=== PATIENT | female | born 1990 | race Caucasian/White ===

== ENCOUNTER → 2020-02-15 12:45 | Outpatient (CLI) | payer MEDICAID, SELFPAY ==
--- NOTE | 2020-02-15 12:46 | US_ITS ---
PROCEDURE: US OB /MATERNAL DETAIL CLINICAL INDICATION: US OB Complete Anatomy scan COMPARISON: No exams were available for comparison FINDINGS: There is a single live fetus which is in breech presentation. heart and body motion is noted. The cervix is closed and measures 5 cm transabdominal. The placenta is anterior in implantation and is grade 1. The placenta is low lying near the cervical os. Complete survey performed and was unremarkable on the submitted images as in PACS. No discrete anomalies identified on survey imaging by technologist. Active fetus. Three-vessel cord with satisfactory umbilical cord insertion. 4- chamber heart noted. Survey of brain & ventricles Unremarkable. Face and neck survey unremarkable. Diaphragm and chest views unremarkable. Abdomen: Both kidneys noted and unremarkable. Stomach noted and satisfactory. Spine: Survey of the spine satisfactory with no anomalies identified nor imaged. Both arms and legs noted. Amniotic Fluid: Adequate. Maternal adnexa: No significant findings. Measurements: Average ultrasound age 20weeks 5days. Gestational Age 20weeks 3days Estimated due date by ultrasound age 0206/29/2020. Estimated weight 365g BPD = 20weeks 5days OFD = 21weeks 3days HC = 20weeks 3days AC = 20weeks 6days FL = 20weeks 3days Growth Percentile= 2% Heart Rate = 150bpm Cerebellum = 21weeks 4days Humerus = 21weeks HC/AC is 1.14 CI is 0.75 FL/BPD is 0.69 FL/AC is 0.21 IMPRESSION: There is a live IUP in breech presentation with an average ultrasound age of 20 weeks and 5 days. All parameters correlate with no obvious anomalies. The LMP percentile growth is 2 percent however. This could be related to miss calculated dates. Please correlate with patient's menstrual history. One cannot exclude the possibility of intrauterine growth restriction based on the numbers. There is an anterior grade 1 placenta which is low lying. Dictated by: John Tavares MD 02/16/2020 09:18 John Tavares MD in [place] 02/16/2020 09:18
== END ==
PROVIDERS: PCP Family Medicine; Visit Provider Obstetrics & Gynecology
DX: Z36.0 Encounter for antenatal screening for chromosomal anomalies (principal)
CPT/HCPCS: 76811

== ENCOUNTER → 2020-02-29 15:16 | Outpatient (CLI) | payer MEDICAID, SELFPAY ==
[2020-02-29 16:34] LABS: Basophils % 0.2 % (0.1-2.0); Eosinophils # 0.1 K/mm3 (0.0-0.4); Eosinophils % 1.2 % (0.1-12.0); Hematocrit 44.2 % (37.0-47.0); Hemoglobin 14.1 g/dL (12.2-16.2); Lymphocytes # 2.2 K/mm3 (0.7-4.5); Lymphocytes % 21.1 % (10-50); Mean Corpuscular Volume 90.7 fl (81-99); Mean Platelet Volume 8.6 fl (7.4-10.4); Monocytes # 0.4 K/mm3 (0.1-1.0); Monocytes % 3.5 % (1.7-9.3); Neutrophils # 7.6 K/mm3 (1.8-7.8); Platelet Count 261 K/mm3 (142-424); Red Blood Count 4.88 M/mm3 (4.20-5.40); Red Cell Distribution Width 14.7 % (11.5-17.5); White Blood Count 10.3 K/mm3 (4.8-10.8)
[2020-03-02 09:22] LABS: HIV Screen 4th Generation wRfx Non Reactive (Non Reactive)
[2020-03-02 10:41] LABS: Hepatitis B Surface Antigen Negative (Negative); Hepatitis C Antibody <0.1 s/co ratio (0.0-0.9)
[2020-03-02 14:47] LABS: Rapid Plasma Reagin Ab Titer Non Reactive (NonRea<1:1)
== END ==
PROVIDERS: Visit Provider Obstetrics & Gynecology
DX: Z34.90 Encounter for supervision of normal pregnancy, unspecified, unspecified trimester (principal)
CPT/HCPCS: 36415; 85025; 86592; 86703; 86762; 86850; 87340; 87380; G0432

== ENCOUNTER → 2020-04-04 15:54 | Outpatient (CLI) | payer MEDICAID, SELFPAY | PROVIDERS: Visit Provider Obstetrics & Gynecology | DX: Z34.90 Encounter for supervision of normal pregnancy, unspecified, unspecified trimester (principal) | CPT/HCPCS: 87086; 87088; 87186 ==

== ENCOUNTER 2020-04-04 22:05 | Observation (INO) | payer MEDICAID, SELFPAY ==
[2020-04-04 18:45] VITALS: BP 116/69; PULSE 68; RESP 22; TEMP 37.1; O2SAT 96; BMI 26.3
[2020-04-04 18:55] LABS: Microscopic, Urine URINE MICROSCOPIC (MICROSCOPIC)
[2020-04-04 19:08] LABS: Appearance,Urine CLOUDY (Clear); Bilirubin,Urine Negative (Negative); Blood, Urine Negative (Negative); Color,Urine YELLOW (Yellow); Glucose,Urine (UA) Negative (Negative); Ketones,Urine 1+ (Negative); Leukocyte Esterase,Urine 1+ (Negative); Nitrate,Urine Negative (Negative); Protein,Urine Negative (Negative); Urobilinogen,Urine 0.2 EU/dl (0.2)
[2020-04-04 19:24] LABS: Amphetamine/Metha Screen,Urine Negative ng/ml (<1000)
[2020-04-04 19:25] LABS: Barbiturates Screen,Urine Negative ng/ml (<200); Benzodiazepines Screen,Urine Negative ng/ml (<200)
[2020-04-04 19:26] LABS: Cannabinoid Screen,Urine Negative ng/ml (<50); Cocaine Screen,Urine Negative ng/ml (<300)
[2020-04-04 19:27] LABS: Methadone Screen,Urine Negative ng/ml (<300)
[2020-04-04 19:28] LABS: Opiate Screen,Urine Negative ng/ml (<300); Phencyclidine Screen,Urine Negative ng/ml (<25)
[2020-04-04 19:42] LABS: Bacteria,Urine 4+ /lpf
[2020-04-04 22:20] LABS: Basophils % 0.4 % (0.1-2.0); Eosinophils # 0.1 K/mm3 (0.0-0.4); Hemoglobin 10.5 g/dL (12.2-16.2); Lymphocytes # 2.7 K/mm3 (0.7-4.5); Lymphocytes % 27.8 % (10-50); Mean Corpuscular HGB Conc 31.8 g/dL (31.8-35.4); Mean Corpuscular Hemoglobin 28.7 pg (27.0-31.2); Mean Corpuscular Volume 90.2 fl (81-99); Mean Platelet Volume 8.5 fl (7.4-10.4); Monocytes # 0.3 K/mm3 (0.1-1.0); Monocytes % 3.1 % (1.7-9.3); Neutrophils # 6.6 K/mm3 (1.8-7.8); Neutrophils % 67.7 % (37.0-80.0); Platelet Count 240 K/mm3 (142-424); Red Blood Count 3.66 M/mm3 (4.20-5.40); Red Cell Distribution Width 13.8 % (11.5-17.5); White Blood Count 9.8 K/mm3 (4.8-10.8)
[2020-04-04 22:22] LABS: Chloride 107 mmol/L (98-107); Sodium 135 mmol/L (136-145)
[2020-04-04 22:23] LABS: Potassium 3.4 mmoL/L (3.5-5.1)
[2020-04-04 22:25] LABS: Blood Urea Nitrogen 4 mg/dl (7-17); Creatinine Clearance Estimated 200 mL/min (50-200); Estimated Glomerular Filt Rate 146 ml/min (>60); GFR (African American) 177 ML/MIN (>60)
[2020-04-04 22:26] LABS: Anion Gap 8.4 mEq/L (5-15); Calcium 8.7 mg/dl (8.4-10.2); Carbon Dioxide 23 mmol/L (22.0-30.0); Glucose 91 mg/dl (74-100)
[2020-04-04 23:01] LABS: Coronavirus 19 IgG Antibody Negative (Negative); Coronavirus 19 IgM Antibody Negative (Negative)
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
[2020-04-05 06:49] LABS: Basophils % 0.5 % (0.1-2.0); Eosinophils # 0.1 K/mm3 (0.0-0.4); Eosinophils % 1.6 % (0.1-12.0); Hematocrit 31.4 % (37.0-47.0); Hemoglobin 9.8 g/dL (12.2-16.2); Lymphocytes # 3.2 K/mm3 (0.7-4.5); Lymphocytes % 44.5 % (10-50); Mean Corpuscular HGB Conc 31.1 g/dL (31.8-35.4); Mean Corpuscular Hemoglobin 28.5 pg (27.0-31.2); Mean Corpuscular Volume 91.6 fl (81-99); Mean Platelet Volume 8.2 fl (7.4-10.4); Monocytes # 0.3 K/mm3 (0.1-1.0); Monocytes % 3.9 % (1.7-9.3); Neutrophils # 3.6 K/mm3 (1.8-7.8); Neutrophils % 49.4 % (37.0-80.0); Platelet Count 217 K/mm3 (142-424); Red Blood Count 3.43 M/mm3 (4.20-5.40); Red Cell Distribution Width 13.7 % (11.5-17.5); White Blood Count 7.3 K/mm3 (4.8-10.8)
[2020-04-05 06:55] LABS: Chloride 107 mmol/L (98-107); Potassium 4.2 mmoL/L (3.5-5.1); Sodium 137 mmol/L (136-145)
[2020-04-05 06:58] LABS: Anion Gap 7.2 mEq/L (5-15); Blood Urea Nitrogen 5 mg/dl (7-17); Calcium 8.7 mg/dl (8.4-10.2); Carbon Dioxide 27 mmol/L (22.0-30.0); Creatinine Clearance Estimated 166 mL/min (50-200); Estimated Glomerular Filt Rate 118 ml/min (>60); GFR (African American) 143 ML/MIN (>60); Glucose 74 mg/dl (74-100)
--- NOTE | 2020-04-05 07:33 | HMH.PHAVTE ---
[facility] Pharmacy VTE Monitoring - Patient Demographics Admission date: 04/04/20 Report Date: 04/05/20 Time: 07:33 Allergies/Adverse Reactions: Patient Allergies No Known Allergies Allergy (Verified 04/04/20 14:18) Height: 1.7 m Weight: 76.204 kg - VTE Risk Labs: VTE Related Lab Results Hgb 9.8 g/dL (12.2-16.2) L 04/05/20 06:10 Hct 31.4 % (37.0-47.0) L 04/05/20 06:10 Plt Count 217 K/mm3 (142-424) 04/05/20 06:10 BUN 5 mg/dl (7-17) L 04/05/20 06:10 Creatinine 0.60 mg/dl (0.52-1.04) 04/05/20 06:10 Estimated Creat Clear 166 mL/min (50-200) 04/05/20 06:10 - Prophylaxis VTE Prophylaxis Ordered?: Yes Types of VTE Prophylaxis: TEDS Knee High Location of Applied Device: Bilateral Lower Extremeties
--- NOTE | 2020-04-05 07:33 | HMH.PHAINT ---
MEDICATION RECONCILIATION COMPLETED ON PATIENT USING EXTERNAL FILL HISTORY FROM PHARMACY. -RADHA BRITT, DEIDRAD
--- NOTE | 2020-04-05 09:00 | US_ITS ---
PROCEDURE: US KIDNEY CLINICAL INDICATION: left flank pain COMPARISON: US US OB /MATERNAL DETAIL from 02/15/2020 FINDINGS: The right kidney is 12 x 6 x 6 cm. Left kidney is 12 x 6 x 6 cm. There is very minimal ectasia of the renal pelves on both sides which could be related to patient's hydration status and could also be seen with . No renal mass or other significant anomaly evident. IMPRESSION: Minimal ectasia of the pelvicaliceal systems on both sides which could be seen with aggressive hydration or may also be seen with .. No convincing evidence obstructive uropathy. Dictated by: John Tvaares MD 04/05/2020 10:12 John Tavares MD in [place] 04/05/2020 10:12
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
== END 2020-04-05 14:20 | disposition home or self-care (01) ==
LOC: OBOUT 22:05 → OB 22:05
PROVIDERS: Admitting Provider Nurse Practitioner Obstetrics & Gynecology; PCP Family Medicine; Visit Provider Obstetrics & Gynecology
DX: O23.42 Unspecified infection of urinary tract in pregnancy, second trimester (principal); O09.30 Supervision of pregnancy with insufficient antenatal care, unspecified trimester; Z3A.27 27 weeks gestation of pregnancy
CPT/HCPCS: 59025; 76770; 80048; 80305; 81001; 85025; 86328; 96365; G0378; J0595

== ENCOUNTER → 2020-05-25 14:51 | Outpatient (CLI) | payer MEDICAID, SELFPAY | PROVIDERS: Visit Provider Obstetrics & Gynecology | DX: Z34.90 Encounter for supervision of normal pregnancy, unspecified, unspecified trimester (principal) | CPT/HCPCS: 87086; 87088; 87186 ==

== ENCOUNTER → 2020-05-31 16:20 | Outpatient (CLI) | payer MEDICAID, SELFPAY | PROVIDERS: Visit Provider Obstetrics & Gynecology | DX: Z34.90 Encounter for supervision of normal pregnancy, unspecified, unspecified trimester (principal) | CPT/HCPCS: 86403 ==

== ENCOUNTER → 2020-06-03 12:59 | Outpatient (CLI) | payer MEDICAID, SELFPAY ==
--- NOTE | 2020-06-03 13:06 | US_ITS ---
PROCEDURE: US OB BIOPHYSICAL PROFILE CLINICAL INDICATION: US BPP Growth PRISCILLA- SGA TECHNIQUE: FINDINGS: The following parameters are obtained: Average ultrasound age is Average 36weeks 3days Estimated due date by ultrasound is 06/28/2020. Estimated weight is 2,943g. This is 57th percentile. BPD: 36 weeks 4 days OFD: 38 weeks 5 days HC: 36 weeks 3 days AC: 36 weeks 6 days FL: 35 weeks 6 days heart rate: 165bpm bpm. HC/AC: 0.98 Cephalic index: 0.79 FL/BPD: 0.77 FL/AC: 0.21 Amniotic fluid index: 11.02cm Qualitative AFV: 2 breathing movements: 2 Gross body movements: 2 Tone: 2 Biophysical profile score: 8 The placenta is anterior and grade 3. IMPRESSION: Live IUP and cephalic presentation with an average ultrasound age is 36 weeks 3 days estimated weight of 2943 g which is 57th percentile. All parameters correlate. PRISCILLA is normal at 11 cm. Biophysical profile 8 of 8 Dictated by: John Tavares MD 06/03/2020 13:59 John Tavares MD in [place] 06/03/2020 13:59
== END ==
PROVIDERS: PCP Family Medicine; Visit Provider Obstetrics & Gynecology
DX: O36.5990 Maternal care for other known or suspected poor fetal growth, unspecified trimester, not applicable or unspecified (principal)
CPT/HCPCS: 76816; 76819

== ENCOUNTER 2020-06-19 17:33 | Inpatient (IN) | payer MEDICAID, SELFPAY ==
[2020-06-19] VITALS (7 sets, daily range): BP systolic 105–116; BP diastolic 4–78; PULSE 62–75; RESP 16–18; TEMP 36.1–36.7; O2SAT 96–98; BMI 27.6
[2020-06-19 15:16] LABS: Microscopic, Urine URINE MICROSCOPIC (MICROSCOPIC)
[2020-06-19 15:17] LABS: Appearance,Urine CLEAR (Clear); Bilirubin,Urine Negative (Negative); Blood, Urine Negative (Negative); Color,Urine YELLOW (Yellow); Glucose,Urine (UA) Negative (Negative); Ketones,Urine Negative (Negative); Leukocyte Esterase,Urine Negative (Negative); Nitrate,Urine Negative (Negative); Protein,Urine Negative (Negative); Urobilinogen,Urine 0.2 EU/dl (0.2)
[2020-06-19 15:29] LABS: Amphetamine/Metha Screen,Urine Negative ng/ml (<1000); Benzodiazepines Screen,Urine Negative ng/ml (<200)
[2020-06-19 15:30] LABS: Barbiturates Screen,Urine Negative ng/ml (<200)
[2020-06-19 15:31] LABS: Cannabinoid Screen,Urine Negative ng/ml (<50); Methadone Screen,Urine Negative ng/ml (<300)
[2020-06-19 15:32] LABS: Amorphous Sediment,Urine Trace /lpf; Cocaine Screen,Urine Negative ng/ml (<300); Opiate Screen,Urine Negative ng/ml (<300)
[2020-06-19 15:33] LABS: Phencyclidine Screen,Urine Negative ng/ml (<25)
[2020-06-19 18:12] LABS: Basophils # 0.1 K/mm3 (0-0.2); Basophils % 0.6 % (0.1-2.0); Eosinophils # 0.1 K/mm3 (0.0-0.4); Eosinophils % 0.9 % (0.1-12.0); Hematocrit 37.2 % (37.0-47.0); Lymphocytes # 2.7 K/mm3 (0.7-4.5); Mean Corpuscular HGB Conc 32.3 g/dL (31.8-35.4); Mean Corpuscular Hemoglobin 27.8 pg (27.0-31.2); Mean Corpuscular Volume 85.9 fl (81-99); Mean Platelet Volume 8.9 fl (7.4-10.4); Monocytes # 0.4 K/mm3 (0.1-1.0); Monocytes % 2.8 % (1.7-9.3); Neutrophils % 73.6 % (37.0-80.0); Platelet Count 255 K/mm3 (142-424); Red Blood Count 4.33 M/mm3 (4.20-5.40); Red Cell Distribution Width 15.2 % (11.5-17.5); White Blood Count 12.2 K/mm3 (4.8-10.8)
[2020-06-19 18:24] LABS: Anion Gap 11.5 mEq/L (5-15); Blood Urea Nitrogen 4 mg/dl (7-17); Calcium 9.4 mg/dl (8.4-10.2); Carbon Dioxide 23 mmol/L (22.0-30.0); Chloride 107 mmol/L (98-107); Creatinine Clearance Estimated 209 mL/min (50-200); Estimated Glomerular Filt Rate 146 ml/min (>60); GFR (African American) 177 ML/MIN (>60); Glucose 88 mg/dl (74-100); Potassium 3.5 mmoL/L (3.5-5.1); Sodium 138 mmol/L (136-145)
[2020-06-19 18:38] LABS: Coronavirus 19 IgG Antibody Negative (Negative); Coronavirus 19 IgM Antibody Negative (Negative)
[2020-06-19 18:50] LABS: Cord Blood PH 7.39 (7.35-7.45)
--- NOTE | 2020-06-19 19:21 | HMH.ANESCL ---
[facility] Anesthesia Checklist - Patient Identification Patient Identification: Arm Band - Structural Data Admitted From: Inpatient Planned Operative Procedure/s: Repeat C/S Consent for Planned Operative Procedure(s) Verified: Yes Verified Documents: Surgical Consent, History and Physical - NPO Status Verified Time NPO: 00:00 - Additional verifications Anesthesia Reactions: No - Airway Assessment C-Spine Mobility Assessed: Yes (mp2) TMJ Mobility Assessed: Yes Dentition: Poor Dentition - Neurological Assessment Level of Consciousness: Awake, Alert - Anesthesia Plan Anesthesia Risk discussed: Yes Anesthesia Plan: Verified ASA Class: II Anesthesia Type: Spinal [facility] History I have reviewed the patient's past medical history: Yes *Have you ever received a pneumonia vaccine?: No *Have you received a flu vaccine this season?: No Anesthesia experience/problems:: nac Other Surgeries: Yes: Amputation: No Fractures: No - *Social History Smoking Status: Former smoker Alcohol Intake: never Substance Use Type: denies use *Occupational Status:: unemployed Housing: house Household Members: significant other *Travel in the last 8 weeks: None Family Hx:: Cancer, Diabetes, Heart Attack, Hypertension, Hyperlipidemia, Kidney Disease Para: 4
--- NOTE | 2020-06-19 19:21 | HMH.ANESI ---
[facility] Anesthesia Record Part I Intake, IV Amount: 2,000 Estimated blood loss (mL): 400 Urine output (mL): 300 Blood Pressure: 109/54 SaO2: 97 Pulse Rate: 75 Respiratory Rate: 16 Temperature: 97 F Patient is:: Drowsy, Stable Stable to PACU at:: 19:15
--- NOTE | 2020-06-19 19:24 | HMH.OPNOTE ---
Date of procedure: 06/19/20 ( 2.9-year-old 3 previous C-sections in active labor at 38-4/7 weeks. Brethine well to stop contractions, so the decision was made to proceed to repeat section (as was already scheduled 5 days hence).) Pre-op Diagnosis:: #1 term intrauterine . #2 active labor. #3 devious sections x3. Post-op Diagnosis:: Same, 7/9 term male . Procedure performed:: Repeat low transverse cervical section. Surgeon:: David Caldwell MD Transportation Solutions Manager(s):: Dr. Tolbert HARDNESS TESTER:: Kurt Ball Anesthesia: spinal Estimated blood loss (mL): 400 Operative findings:: Term intrauterine , previous sections x3. Operative note:: After the patient was prepped and draped in the usual fashion and spinal anesthesia was administered, a low Pfannenstiel incision was made across the midline through the previous incision, and the fat and fascia were in the usual fashion, bleeders being clamped and coagulated along the way. The peritoneum was carefully entered with Metzenbaum scissors, and extended above and below. The bladder peritoneum was sharply and bluntly dissected from the area of incision, and the bladder was protected with a bladder blade. The uterus was entered in a low transverse fashion with a knife, and the incision was extended bluntly, bilaterally. The baby was found to be in the LOP position of the vertex. The usual fundal pressure was inadequate for delivery, and so section forceps were applied and the baby was easily delivered without complications. There was no meconium. There was no nuchal cord. The baby's nasal and oropharynx were bulb suctioned, and the baby cried spontaneously on the abdomen, as was delivered. The cord was clamped and cut, 3 vessels were noted to be within the cord, and cord blood was obtained. The cord pH was 7.39. The baby was handed into the arms of the attending cod clerk, Dr. England, who assigned Apgars of 7 at 1 minute and 9 at 5 minutes to this 7 pound 13 ounce, 19-1/2 inch term male . The baby subsequently experienced some grunting and was placed on CPAP, but is stable. The placenta was delivered manually, intact. A ring forceps was used to assure adequate drainage to the cervix; this was then passed off the field, as an unsterile instrument. The uterus was closed in 2 layers, the first a running locked suture of #1 Vicryl as an endometrial layer, followed by a running unlocked suture of #1 Vicryl as a myometrial layer, imbricating over the first. The bladder peritoneum was closed with a running unlocked suture of 2-0 Vicryl. Blood and clots were then swept from the gutters, and the tubes and ovaries were inspected and found to be normal. The peritoneum was grasped with 3 Radha clamps, and closed with a running semilock suture of 0 Vicryl. The muscle was approximated with a running unlocked suture of 0 Vicryl. The fascia was closed with a running locked suture of #1 Vicryl. The subcutaneous fat and Brandon's fascia were closed with a running unlocked suture of 2-0 Vicryl. The skin was closed with a subcuticular suture of 3-0 Vicryl, and appropriately dressed. The sponge and needle count was correct. The estimated blood loss was 400 cc. A pelvic examination at the close of the procedure expressed blood and clots from the involuting uterus, with IV Pitocin running. The patient tolerated the procedure well, and was taken to PACU in excellent condition. Her blood type is a positive. Her rubella titer is immune. She plans to breast-feed. Dr. Newton will assume her /postop care tomorrow morning. Condition: stable Disposition: PACU Specimens:: None. Complications:: None.
--- NOTE | 2020-06-19 19:59 | PC.NURSE ---
1941-detailed report called to GISELLA Kulkarni 1944-pt transported to OB room 276 via hospital bed with sandi rails up and left in care of GISELLA Kulkarni with bed locked in lowest position, vss, pt stable, family at bedside
[2020-06-20 04:30] VITALS: BP 121/84; PULSE 67; RESP 18; TEMP 36.8; O2SAT 98
[2020-06-20 07:06] LABS: Hematocrit 31.7 % (37.0-47.0)
[2020-06-20 07:07] LABS: Hemoglobin 10.3 g/dL (12.2-16.2)
--- NOTE | 2020-06-20 07:23 | P.CONPHA_ITS ---
[facility] Pharmacy VTE Monitoring - Patient Demographics Admission date: 06/19/20 Report Date: 06/20/20 Time: 07:23 Allergies/Adverse Reactions: Patient Allergies No Known Allergies Allergy (Verified 06/19/20 19:31) Height: 1.7 m Weight: 79.832 kg - VTE Risk Labs: VTE Related Lab Results Hgb 10.3 g/dL (12.2-16.2) L D 06/20/20 06:35 Hct 31.7 % (37.0-47.0) L 06/20/20 06:35 Plt Count 255 K/mm3 (142-424) 06/19/20 18:05 BUN 4 mg/dl (7-17) L 06/19/20 18:05 Creatinine 0.50 mg/dl (0.52-1.04) L 06/19/20 18:05 Estimated Creat Clear 209 mL/min (50-200) 06/19/20 18:05 - Prophylaxis VTE Prophylaxis Ordered?: Yes Types of VTE Prophylaxis: IPCS Thigh High Location of Applied Device: Bilateral Lower Extremeties
--- NOTE | 2020-06-20 07:28 | P.PN_ITS ---
[facility] Anesthesia Record Part II Discharge Time: 19:45 Destination: Obstetric PACU nurse assessment reviewed?: Yes Patient Condition:: Good Anesthesia Complications:: None Swallowing reflex intact?: Yes Cyanosis?: No Blood Pressure: 105/60 Pulse Rate: 72 Temperature: 97.2 F Mental Status: Alert & Oriented Pain level:: 0 Nausea and/or vomitting:: None Intake, IV Amount: 0
[2020-06-20 07:29] VITALS: BP 105/60; PULSE 72; TEMP 36.2
[2020-06-20 08:15] VITALS: BP 111/61; PULSE 69; RESP 18; TEMP 36.5; O2SAT 100
[2020-06-20 12:25] VITALS: BP 115/60; PULSE 69; RESP 16; TEMP 36.5; O2SAT 100
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
--- NOTE | 2020-06-20 14:38 | HMH.DCSUM ---
General - General Admission date:: 06/19/20 Discharge date: 06/20/20 HPI HPI: Admitted at 38 3/7 with active labor history of previous CS and delivered on 06/19/20 postop course uneventful ambulating and voiding without difficulty tolerating regular diet requesting discharge home on POD #1 to be with baby, transferred to for respiratory problems Objective Vital signs: Temp Pulse Resp BP Pulse Ox 97.7 F 69 16 115/60 100 06/20/20 12:25 06/20/20 12:25 06/20/20 12:25 06/20/20 12:25 06/20/20 12:25 Narrative: CONSTITUTIONAL: no acute distress HEENT: mucous membranes moist PULMONARY: breathing unlabored without audible wheezes CV: no tachycardia or visible JVD; normal LE peripheral pulses ABD: soft, ND; appropriately tender but no rebound/guarding : fundus firm at/below umbilicus SKIN: incision well approximated with no drainage, erythema or induration EXT: 1+ edema LEs NEURO: alert/oriented, no altered mental status PSYCH: appropriate mood and demeanor without anxiety/depression Results Labs on day of discharge: Labs from last 24 hours 06/20/20 06/19/20 06/19/20 06:35 18:47 18:05 WBC RBC Hgb 10.3 L D Hct 31.7 L MCV MCH MCHC RDW Plt Count MPV Neut % (Auto) Lymph % (Auto) [place] % (Auto) Eos % (Auto) Baso % (Auto) Neut # (Auto) Lymph # (Auto) [place] # (Auto) Eos # (Auto) Baso # (Auto) Cord ABG pH 7.39 Sodium 138 Potassium 3.5 Chloride 107 Carbon Dioxide 23 Anion Gap 11.5 BUN 4 L Creatinine 0.50 L Estimated Creat Clear 209 Estimated GFR 146 Est GFR ( Amer) 177 Glucose 88 Calcium 9.4 Urine Color Urine Appearance Urine pH Ur Specific [place] Urine Protein Urine Glucose (UA) Urine Ketones Urine Blood Urine Nitrate Urine Bilirubin Urine Urobilinogen Ur Leukocyte Esterase Urine RBC Urine WBC Ur Squamous Epith Cells Amorphous Sediment Urine Bacteria Urine Opiates Screen Urine Methadone Screen Ur Barbituates Screen Ur Phencyclidine Scrn Ur Amphetamines Screen U Benzodiazepines Scrn Urine Cocaine Screen U Marijuana (THC) Screen SARS-CoV-2 IgG Ab (Rapid) SARS-CoV-2 IgM Ab (Rapid) Blood Type Antibody Screen 06/19/20 06/19/20 06/19/20 18:05 18:05 18:05 WBC 12.2 H RBC 4.33 Hgb 12.0 L Hct 37.2 MCV 85.9 MCH 27.8 MCHC 32.3 RDW 15.2 Plt Count 255 MPV 8.9 Neut % (Auto) 73.6 Lymph % (Auto) 22.0 [place] % (Auto) 2.8 Eos % (Auto) 0.9 Baso % (Auto) 0.6 Neut # (Auto) 9.0 H Lymph # (Auto) 2.7 [place] # (Auto) 0.4 Eos # (Auto) 0.1 Baso # (Auto) 0.1 Cord ABG pH Sodium Potassium Chloride Carbon Dioxide Anion Gap BUN Creatinine Estimated Creat Clear Estimated GFR Est GFR ( Amer) Glucose Calcium Urine Color Urine Appearance Urine pH Ur Specific [place] Urine Protein Urine Glucose (UA) Urine Ketones Urine Blood Urine Nitrate Urine Bilirubin Urine Urobilinogen Ur Leukocyte Esterase Urine RBC Urine WBC Ur Squamous Epith Cells Amorphous Sediment Urine Bacteria Urine Opiates Screen Urine Methadone Screen Ur Barbituates Screen Ur Phencyclidine Scrn Ur Amphetamines Screen U Benzodiazepines Scrn Urine Cocaine Screen U Marijuana (THC) Screen SARS-CoV-2 IgG Ab (Rapid) Negative SARS-CoV-2 IgM Ab (Rapid) Negative Blood Type A Positive Antibody Screen Negative 06/19/20 06/19/20 14:34 14:34 WBC RBC Hgb Hct MCV MCH MCHC RDW Plt Count MPV Neut % (Auto) Lymph % (Auto) [place] % (Auto) Eos % (Auto) Baso % (Auto) Neut # (Auto) Lymph # (Auto) [place] # (Auto) Eos # (Auto) Baso # (Auto) Cord ABG pH Sodium [place]
== END 2020-06-20 15:55 | disposition home or self-care (01) | DRG 788 ==
LOC: OBOUT 17:33 → OB 17:33
PROVIDERS: Admitting Provider Obstetrics & Gynecology; PCP Obstetrics & Gynecology; Visit Provider Obstetrics & Gynecology
PROC: 10D00Z1 Extraction of Products of Conception, Low, Open Approach (ICD-10-PCS; CPT 59514; principal; 2020-06-19 18:15)
DX: O34.211 Maternal care for low transverse scar from previous cesarean delivery (principal); N85.8 Other specified noninflammatory disorders of uterus; O75.82 Onset (spontaneous) of labor after 37 completed weeks of gestation but before 39 completed weeks gestation, with delivery by (planned) cesarean section; Z3A.38 38 weeks gestation of pregnancy; Z37.0 Single live birth
CPT/HCPCS: 59514; 36415; 59025; 80048; 80305; 81001; 82800; 85014; 85018; 85025; 86328; 86850; 94761; 96360; 96372; G0283; J2405; U0003

== ENCOUNTER 2021-01-27 09:13 | Emergency (ER) | payer MEDICAID, SELFPAY ==
[2021-01-27 09:14] VITALS: BP 161/102; PULSE 81; RESP 18; TEMP 36.8; O2SAT 97; BMI 27.6
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
--- NOTE | 2021-01-27 09:23 | XR_ITS ---
PROCEDURE: XR ELBOW RT MIN 3V CLINICAL INDICATION: trauma COMPARISON: No exams were available for comparison FINDINGS: No fracture or dislocation. No lytic or blastic change. There is normal mineralization. The joint spaces are well-preserved. No significant degenerative/arthritic changes. No erosive changes evident. Other findings:None. IMPRESSION: No acute findings. Dictated by: John Tavares MD 01/27/2021 11:24 John Tavares MD in [facility] 01/27/2021 11:24
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
[2021-01-27 09:30] VITALS: BP 149/100; PULSE 64; RESP 18; O2SAT 96
[2021-01-27 10:32] VITALS: BP 108/73; PULSE 86; RESP 16; O2SAT 99
[2021-01-27 10:37] VITALS: BP 108/73; PULSE 48; RESP 18; O2SAT 100
[2021-01-27 11:00] VITALS: BP 117/72; PULSE 51; RESP 16; O2SAT 99
[2021-01-27 11:31] VITALS: BP 117/72; PULSE 57; RESP 16; TEMP 36.8; O2SAT 99
== END 2021-01-27 11:31 | disposition home or self-care (01) ==
PROVIDERS: Emergency Provider Emergency Medicine; PCP Family Medicine
DX: S53.401A Unspecified sprain of right elbow, initial encounter (principal); S39.012A Strain of muscle, fascia and tendon of lower back, initial encounter; V86.99XA Unspecified occupant of other special all-terrain or other off-road motor vehicle injured in nontraffic accident, initial encounter
CPT/HCPCS: 72131; 73080; 99282

== ENCOUNTER 2021-03-07 18:42 | Emergency (ER) | payer MEDICAID, SELFPAY ==
--- NOTE | 2021-03-07 20:38 | XR_ITS ---
PROCEDURE INFORMATION: Exam: XR Chest Exam date and time: 03/07/2021 8:38 PM Age: 30 years old Clinical indication: Cough and fever and shortness of breath; Patient HX: PT was dx with bronchitis 2 weeks ago with no relief, cough, SOA, smoker TECHNIQUE: Imaging protocol: XR of the chest. Views: 2 views. COMPARISON: No relevant prior studies available. FINDINGS: Lungs: Unremarkable. No consolidation. Pleural spaces: Unremarkable. No pleural effusion. No pneumothorax. Heart/Mediastinum: Unremarkable. No cardiomegaly. Bones/joints: Unremarkable. IMPRESSION: No acute findings.
[2021-03-07 20:40] VITALS: BP 138/91; PULSE 82; RESP 20; TEMP 36.6; O2SAT 100; BMI 26.9
--- NOTE | 2021-03-07 21:39 | HMH.EDUTC ---
[facility] [place] Disposition Clinical Impression: URI (upper respiratory infection) Qualifiers: URI type: unspecified URI Qualified Code(s): J06.9 - Acute upper respiratory infection, unspecified Disposition: Home, Self-Care Condition on Discharge: Good Instructions: Sore Throat, Cough, DI for Cough -- Adult Additional Instructions: ? Start antibiotic today. Be sure to complete entire prescription even if feeling better ? Monitor temp. Tylenol every 4 hours as needed and / or ibuprofen every 6 hours as needed ( As long as your primary care physician has told you that it ok to take both. For fever/aches/pains ER if no less than 101 despite Tylenol or Motrin ? Humidifier/vaporizer or hot steamy shower ? Inhaler every 4-6 hours as needed like we discussed. If unsure how to use it, ask pharmacist to demonstrate how. Should help open airways and improve cough, wheezing, and shortness of breath Follow up IMMEDIATELY for new or worsening of symptoms OR no noticeable improvement over the next 48-72 hours. 911 immediately for any life threatening symptoms such as chest pain or difficulty breathing Prescriptions: Albuterol Sulfate [Proventil-HFA 90mcg/puff Inh] 1 - 2 puffs IH Q4HP PRN #1 each PRN Reason: Shortness Of Breath Transmission Status: Received by [facility] Referrals: Lindsey Pulido [Primary Care Provider] - As needed Forms: Work/School Release Time of Disposition: 21:48 Medical Decision Making - Juan J Inquiry Pt receiving controlled substance: No Juan J was queried for this patient: No Vital Signs: 03/07/21 20:40 03/07/21 22:00 Temperature 97.9 F 97.9 F Temperature Source Oral Pulse Rate 82 Pulse Rate [Left Radial] 82 Respiratory Rate 20 20 Blood Pressure 138/91 H Blood Pressure [Right Arm] 138/91 H Blood Pressure Mean [Right Arm] 106 Blood Pressure Source [Right Arm] Automatic Cuff Blood Pressure Position [Right Arm] Sitting 02 Sat by Pulse Oximetry 100 Oxygen Delivery Method Room Air Room Air Orders (Tests/Meds): ED MEDICATIONS Discontinued Medications Generic Name Dose Route Start Last Admin Trade Name Freq PRN Reason Stop Dose Admin Ceftriaxone Sodium 1 gm 03/07/21 21:45 03/07/21 21:52 Ceftriaxone 1gm Vial IM 03/07/21 21:46 1 gm ONCE ONE Administration Lidocaine HCl 0 ml 03/07/21 21:45 03/07/21 21:52 Lidocaine 1% 5ml Pf Vial IM 03/07/21 21:46 2.5 ml ONCE ONE Administration Methylprednisolone Sodium Succinate 125 mg 03/07/21 21:46 03/07/21 21:53 Methylprednisolone Sod Succ 125mg Vial IM 03/07/21 21:47 125 mg ONCE ONE Administration - Radiology Data #1 Image(s): Chest Image Reviewed: Yes I have reviewed radiologist's interpretation IMPRESSION: No acute findings. Medical Decision Narrative: Patient denies states that she is currently on her period at this time [facility] [place] HPI - General Stated complaint: sore throat,cough Time Seen by Provider: 03/07/21 21:39 Mode of Arrival: Ambulatory Source of Information: Patient Limitations: No Limitations Description of Symptoms (Recalled from Triage Doc. by RN): dx with bronchitis 2 weeks ago, took meds but has not gotten better, very weak HEENT Symptoms (Recalled from RN notes): No Resp Symptoms (Recalled from RN notes): Yes Skin Symptoms (Recalled from RN notes): No MS Symptoms (Recalled from RN notes): No Functional Status (Recalled from RN notes): na - History of Present Illness Provider Complaint: Patient states that she was seen and treated 2 weeks ago for Bronchitis States that she has taken her medication but still not feeling any better so she came back in to get checked States that she is still having scratchy throat cough and chest congestion and wanted to get tested for COVID - Related Data Home Medications Medication Instructions Recorded Confirmed Vit Calc,Iron,Folic [Kpn] 1 tab PO DAILY 04/04/20 06/20/20 Previous Rx's Medication Instructions
[2021-03-07 22:00] VITALS: BP 138/91; PULSE 82; RESP 20; TEMP 36.6; O2SAT 100
== END 2021-03-07 22:03 | disposition home or self-care (01) ==
LOC: ER 20:32 → UTC 20:32
PROVIDERS: Emergency Provider Nurse Practitioner; PCP Family Medicine
DX: J06.9 Acute upper respiratory infection, unspecified (principal)
CPT/HCPCS: 71046; 96372; 99202; G0463

== ENCOUNTER 2023-04-19 17:10 | Emergency (ER) | payer MEDICAID, SELFPAY ==
[2023-04-19] VITALS (9 sets, daily range): BP systolic 100–115; BP diastolic 60–69; PULSE 65–90; RESP 16–17; TEMP 36.6; O2SAT 98–100; BMI 23.5
--- NOTE | 2023-04-19 17:18 | HMH.EDGENADL ---
Discharge Plan Disposition Patient Disposition: Home, Self-Care Condition: Good Prescriptions Prescriptions: New cefdinir 300 mg capsule 300 mg PO BID 7 Days Qty: 14 0RF No Action prenat.vits,yoshi,[id number] 1 EACH tablet 1 tab PO DAILY acetaminophen 325 MG tablet 650 mg PO Q4HP PRN (Reason: Mild Pain) 0RF ibuprofen 400 MG tablet 800 mg PO Q6HP PRN (Reason: Moderate Pain) Qty: 40 1RF oxycodone 5 MG tablet 5 mg PO Q4HP PRN (Reason: Moderate To Severe Pain) Qty: 30 0RF methocarbamol 750 MG tablet 750 mg PO QID 7 Days Qty: 28 0RF hydrocodone-acetaminophen 1 TAB tablet 1 tab PO Q6HP PRN (Reason: Moderate Pain) Qty: 7 0RF albuterol sulfate 200 PUFFS HFA aerosol inhaler 1 - 2 puffs IH Q4HP PRN (Reason: Shortness Of Breath) Qty: 1 0RF Referrals Follow up/Referrals: Jessica Rodrigez DO [Staff Physician] - See instructions Lindsey Pulido [Primary Care Provider] - See instructions Activity Restrictions/Add. Instructions Additional Instructions/Restrictions: Please take antibiotics as prescribed for urinary tract infection. Recommend following up with Dr. Rodrigez early next week. Please call to schedule an appointment. Clinical Impressions Clinical Impression: UTI (urinary tract infection), Intrauterine , URI (upper respiratory infection) Discharge ED Provider: Joe Gallardo General Adult HPI General Chief complaint: Upper Respiratory Infection Stated complaint: silvina, back pain,cough Time Seen by Provider: 04/19/23 17:14 History of Present Illness HPI narrative: 32-year-old female, reported history of frequent kidney infections, recent positive test presents for multiple complaints. Primary complaint is right flank pain and urinary frequency since last night. She reports this feels similar to prior kidney infections. She has been worked up for kidney infections in the past but they have not found an underlying reason. Denies any current abdominal pain. patient also reports that she has a worsening productive cough. She is a smoker but is cutting back, currently only smoking 1 to 2 cigarettes a day. Her cough and congestion has been present for 4 or 5 days, but now is worse and is productive of green/yellow sputum. Denies fever at home, but reports chills. Patient also reports that she is . She has irregular menstrual periods but her last menstrual period was in early December she is not sure exactly when. She took a test about a week and a half ago and it was positive. She has had 5 previous children. She has not established care for this yet, has follow-up scheduled next Saturday with outside provider. Related Data Home Medications Medication Instructions Recorded Confirmed prenat.vits,yoshi,[id number] 1 tab PO DAILY Supplement 04/04/20 06/20/20 Previous Rx's Medication Instructions Recorded acetaminophen 325 mg tablet 650 mg PO Q4HP PRN Mild Pain 06/20/20 ibuprofen 400 mg tablet 800 mg PO Q6HP PRN Moderate Pain 06/20/20 #40 tabs oxycodone 5 mg tablet 5 mg PO Q4HP PRN Moderate To 06/20/20 Severe Pain #30 tabs hydrocodone 5 mg-acetaminophen 325 1 tab PO Q6HP PRN Moderate Pain #7 01/27/21 mg tablet tabs methocarbamol 750 mg tablet 750 mg PO QID 7 days #28 tabs 01/27/21 albuterol sulfate 90 mcg/actuation 1 - 2 puffs IH Q4HP PRN Shortness 03/07/21 aerosol inhaler Of Breath #1 ea cefdinir 300 mg capsule 300 mg PO BID 7 days #14 caps 04/19/23 Allergies Allergy/AdvReac Type Severity Reaction Status Date / Time No Known Allergies Allergy Verified 06/19/20 19:31 [facility] Disclaimer: The information contained in this section may have been updated after the patient was seen, as this information can be updated by other users. Social History Smoking Status: Never smoker alcohol intake: never substance use type: denies use current occupational status: unemployed Travel in the last 8 weeks: None
--- NOTE | 2023-04-19 17:24 | XR_ITS ---
PROCEDURE INFORMATION: Exam: XR Chest Exam date and time: 04/19/2023 5:28 PM Age: 32 years old Clinical indication: Cough; Additional info: Productive cough TECHNIQUE: Imaging protocol: Radiologic exam of the chest. Views: 1 view. COMPARISON: CR XR CHEST 2V 03/07/2021 8:42 PM FINDINGS: Lungs: No evidence of acute pulmonary disease or infiltrates; lung cedeno appear clear. Pleural spaces: No evidence of pleural effusion, pneumothorax, or pleural thickening in the visualized pleural spaces. Heart/Mediastinum: No evidence of mediastinal widening or cardiac silhouette enlargement; the mediastinum and heart appear within normal limits for contour and size. Bones/joints: No evidence of acute osseous abnormalities within the visualized portions of the thoracic spine and ribs. Osseous structures appear appropriate for patient age. IMPRESSION: Negative study. No acute cardiopulmonary abnormalities identified.
[2023-04-19 17:42] LABS: Chloride 104 mmol/L (98-107); Sodium 136 mmol/L (136-145)
[2023-04-19 17:43] LABS: Potassium 3.6 mmoL/L (3.5-5.1)
[2023-04-19 17:45] LABS: Alanine Aminotransferase 16 U/L (12-78); Albumin/Globulin Ratio 1.3 (1.1-1.8); Alkaline Phosphatase 52 U/L (38-126); Anion Gap 10.6 mEq/L (5-15); Aspartate Amino Transferase 25 U/L (14-36); Bilirubin,Total 0.4 mg/dl (0.2-1.3); Blood Urea Nitrogen 6 mg/dl (7-17); Carbon Dioxide 25 mmol/L (22.0-30.0); Creatinine Clearance Estimated 173 mL/min (50-200); Estimated Glomerular Filt Rate 143 ml/min (>60); GFR (African American) 173 ML/MIN (>60); Globulin 3.2 g/dL (1.3-3.2); Total Protein,Serum 7.2 g/dl (6.3-8.2)
[2023-04-19 17:46] LABS: Calcium 8.3 mg/dl (8.4-10.2); Glucose 65 mg/dl (74-100)
[2023-04-19 17:49] LABS: Basophils # 0.1 K/mm3 (0-0.2); Basophils % 0.9 % (0.1-2.0); Eosinophils # 0.6 K/mm3 (0.0-0.4); Eosinophils % 7.3 % (0.1-12.0); Hematocrit 41.1 % (37.0-47.0); Hemoglobin 13.4 g/dL (12.2-16.2); Lymphocytes # 2.4 K/mm3 (0.7-4.5); Lymphocytes % 28.9 % (10-50); Mean Corpuscular HGB Conc 32.6 g/dL (31.8-35.4); Mean Corpuscular Hemoglobin 29.6 pg (27.0-31.2); Mean Corpuscular Volume 90.9 fl (81-99); Monocytes # 0.4 K/mm3 (0.1-1.0); Monocytes % 4.7 % (1.7-9.3); Neutrophils # 4.8 K/mm3 (1.8-7.8); Neutrophils % 58.2 % (37.0-80.0); Platelet Count 214 K/mm3 (142-424); Red Blood Count 4.53 M/mm3 (4.20-5.40); Red Cell Distribution Width 13.6 % (11.5-17.5); White Blood Count 8.3 K/mm3 (4.8-10.8)
[2023-04-19 17:50] LABS: Microscopic, Urine URINE MICROSCOPIC (MICROSCOPIC)
[2023-04-19 17:58] LABS: Lactic Acid 0.9 mmol/L (0.7-2.1)
[2023-04-19 18:10] LABS: Coronavirus 19, PCR Not Detected (NotDetected); Influenza A, PCR Not Detected (NotDetected); Influenza B, PCR Not Detected (NotDetected)
[2023-04-19 18:14] LABS: Lipase 41 U/L (23-300)
[2023-04-19 18:31] LABS: Appearance,Urine CLOUDY (Clear); Bilirubin,Urine Negative (Negative); Blood, Urine Negative (Negative); Color,Urine DARK YELLOW (Yellow); Glucose,Urine (UA) Negative (Negative); Ketones,Urine Negative (Negative); Leukocyte Esterase,Urine Negative (Negative); Nitrate,Urine Negative (Negative); Protein,Urine Negative (Negative); Specific Gravity, Urine >= 1.030 (1.005-1.030); Urobilinogen,Urine 0.2 EU/dl (0.2)
[2023-04-19 18:32] LABS: HCG,Quantitative 2760 mIU/ml (0-5.42)
[2023-04-19 18:57] LABS: Bacteria,Urine 4+ /lpf
--- NOTE | 2023-04-19 20:04 | PC.NURSE ---
has been paged
--- NOTE | 2023-04-19 20:04 | PC.NURSE ---
on the phone with
--- NOTE | 2023-04-19 20:28 | PC.NURSE ---
Patient requesting food; notified and okay for PO. Crackers sprite provided to patient
--- NOTE | 2023-04-25 16:30 | PC.NURSE ---
urine results how e.coli, pt given cefdinir on DC.No further action per
== END 2023-04-19 21:05 | disposition home or self-care (01) ==
PROVIDERS: Emergency Provider Emergency Medicine; PCP Family Medicine
DX: O23.40 Unspecified infection of urinary tract in pregnancy, unspecified trimester (principal); O98.519 Other viral diseases complicating pregnancy, unspecified trimester; O99.411 Diseases of the circulatory system complicating pregnancy, first trimester; J06.9 Acute upper respiratory infection, unspecified; R00.0 Tachycardia, unspecified; Z3A.00 Weeks of gestation of pregnancy not specified; O99.330 Smoking (tobacco) complicating pregnancy, unspecified trimester; F17.210 Nicotine dependence, cigarettes, uncomplicated
CPT/HCPCS: 71045; 80053; 81001; 83605; 83690; 84702; 85025; 87040; 87086; 87636; 96361; 96365; 96375; 99285; J0696; J2405

== ENCOUNTER → 2023-04-26 15:12 | Outpatient (CLI) | payer MEDICAID, SELFPAY ==
--- NOTE | 2023-04-26 15:15 | US_ITS ---
PROCEDURE: US OB /MATERNAL DETAIL CLINICAL INDICATION: US OB Complete Anatomy Scan/Dating COMPARISON: No exams were available for comparison FINDINGS: Transabdominal sonographic images of the pelvis were obtained. From her established due date she is 19 weeks 2 days. Single viable intrauterine gestation. Cephalic position. Placenta: Anteriorplacenta grade 2. There is an average amount of fluid. MVP 3.2 cm. The cervix appears satisfactory. Closed and measuring 4 cm in length. Complete survey performed and was unremarkable on the submitted images as in PACS. No discrete anomalies identified on survey imaging by technologist. Active fetus. Three-vessel cord with satisfactory umbilical cord insertion. 4- chamber heart noted. Situs, aortic arch, LVOT, RVOT, three-vessel view appear normal. Survey of brain & ventricles Unremarkable. Cerebellum, thalamus, choroid plexus, cisterna magna appear normal. Face and neck survey unremarkable. Lips and nose appeared normal. Profile and nasion could not be visualized today, likely positional. Diaphragm and chest views unremarkable. Abdomen: Both kidneys noted and unremarkable. Bilateral renal pyelectasis measuring 4.0 mm. Stomach and bladder noted and satisfactory. Spine: Survey of the spine satisfactory with no anomalies identified nor imaged. Cervical, thoracic, lower spine appear normal. Both arms and legs noted. Amniotic Fluid: Adequate. Measurements: Average ultrasound age 24weeks 2days. Estimated due date by ultrasound age 0408/14/2023. Estimated weight 669g BPD = 24weeks 4days HC = 23weeks 6days AC = 24weeks 3days FL = 24weeks 1day Heart Rate = 138bpm Cerebellum = 24weeks 3days Humerus = 24weeks 5days HC/AC is 1.11 FL/BPD is 0.72 FL/AC is 0.22 IMPRESSION: 1. Viable fetus in the cephalic presentation with an anterior placenta grade 2. 2. The dates are off by approximately 5 weeks. The BRIAN should be adjusted to reflect this. The revised BRIAN will be August 14, 2023. 3. Anatomical scan appears normal. There is mild bilateral renal pyelectasis measuring 4 mm and this should be followed antenatally and postnatally. 4. Profile and nasion could not be visualized today, likely positional. Repeat scan suggested for completeness. Dictated by: Cale Otero MD 04/28/2023 09:40 Cale Otero MD in [facility] 04/28/2023 09:40
[2023-04-26 17:06] LABS: Basophils # 0.1 K/mm3 (0-0.2); Basophils % 0.7 % (0.1-2.0); Eosinophils # 0.7 K/mm3 (0.0-0.4); Hematocrit 39.3 % (37.0-47.0); Hemoglobin 12.8 g/dL (12.2-16.2); Lymphocytes # 2.6 K/mm3 (0.7-4.5); Lymphocytes % 22.7 % (10-50); Mean Corpuscular HGB Conc 32.7 g/dL (31.8-35.4); Mean Corpuscular Hemoglobin 29.8 pg (27.0-31.2); Mean Corpuscular Volume 91.1 fl (81-99); Mean Platelet Volume 8.7 fl (7.4-10.4); Monocytes # 0.4 K/mm3 (0.1-1.0); Monocytes % 3.2 % (1.7-9.3); Neutrophils # 7.8 K/mm3 (1.8-7.8); Neutrophils % 67.4 % (37.0-80.0); Platelet Count 255 K/mm3 (142-424); Red Blood Count 4.31 M/mm3 (4.20-5.40); Red Cell Distribution Width 13.6 % (11.5-17.5); White Blood Count 11.6 K/mm3 (4.8-10.8)
[2023-04-26 17:35] LABS: Alanine Aminotransferase 11 U/L (12-78); Alkaline Phosphatase 55 U/L (38-126); Aspartate Amino Transferase 19 U/L (14-36); Bilirubin,Total 0.3 mg/dl (0.2-1.3); Blood Urea Nitrogen 5 mg/dl (7-17); Calcium 8.4 mg/dl (8.4-10.2); Carbon Dioxide 26 mmol/L (22.0-30.0); Chloride 105 mmol/L (98-107); Estimated Glomerular Filt Rate 143 ml/min (>60); GFR (African American) 173 ML/MIN (>60); Glucose 64 mg/dl (74-100)
[2023-04-26 20:00] LABS: Sodium 135 mmol/L (136-145)
[2023-04-26 20:01] LABS: Anion Gap 7.9 mEq/L (5-15); Potassium 3.9 mmoL/L (3.5-5.1)
[2023-04-26 20:03] LABS: Albumin Level 3.8 g/dl (3.5-5.0); Albumin/Globulin Ratio 1.4 (1.1-1.8); Globulin 2.8 g/dL (1.3-3.2); Total Protein,Serum 6.6 g/dl (6.3-8.2)
[2023-04-28 07:08] LABS: Rubella Antibodies, IgG 1.56 index (Immune >0.99)
[2023-04-28 10:05] LABS: Rapid Plasma Reagin Ab Titer Non Reactive titer (NonRea<1:1)
[2023-04-30 23:32] LABS: HIV Screen 4th Generation wRfx Non Reactive
[2023-04-30 23:33] LABS: Hepatitis B Surface Antigen Negative; Hepatitis C Antibody Non Reactive
== END ==
PROVIDERS: Visit Provider Obstetrics & Gynecology
DX: O09.32 Supervision of pregnancy with insufficient antenatal care, second trimester (principal); Z3A.19 19 weeks gestation of pregnancy; O99.322 Drug use complicating pregnancy, second trimester
CPT/HCPCS: 36415; 76811; 80053; 85025; 86593; 86703; 86762; 86850; 87086; 87340; 87380; G0432

== ENCOUNTER 2023-06-06 09:50 | Outpatient (CLI) | payer MEDICAID, SELFPAY ==
[2023-06-06 10:11] LABS: Basophils # 0.1 K/mm3 (0-0.2); Basophils % 0.9 % (0.1-2.0); Eosinophils # 0.9 K/mm3 (0.0-0.4); Eosinophils % 11.3 % (0.1-12.0); Hematocrit 33.2 % (37.0-47.0); Hemoglobin 11.4 g/dL (12.2-16.2); Lymphocytes # 2.9 K/mm3 (0.7-4.5); Lymphocytes % 38.1 % (10-50); Mean Corpuscular HGB Conc 34.5 g/dL (31.8-35.4); Mean Corpuscular Hemoglobin 30.7 pg (27.0-31.2); Mean Corpuscular Volume 89.2 fl (81-99); Mean Platelet Volume 8.8 fl (7.4-10.4); Monocytes # 0.4 K/mm3 (0.1-1.0); Monocytes % 4.6 % (1.7-9.3); Neutrophils # 3.4 K/mm3 (1.8-7.8); Platelet Count 228 K/mm3 (142-424); Red Blood Count 3.72 M/mm3 (4.20-5.40); Red Cell Distribution Width 13.2 % (11.5-17.5); White Blood Count 7.6 K/mm3 (4.8-10.8)
[2023-06-06 10:21] LABS: Glucose,Fasting 74 mg/dl (74-100)
[2023-06-06 11:53] LABS: Glucose 1 Hour 69 mg/dL (74-100)
== END 2023-06-06 23:59 ==
LOC: LAB 09:51
PROVIDERS: Visit Provider Obstetrics & Gynecology
DX: Z34.93 Encounter for supervision of normal pregnancy, unspecified, third trimester (principal); Z3A.30 30 weeks gestation of pregnancy
CPT/HCPCS: 36415; 82951; 85025

== ENCOUNTER 2023-06-10 14:41 | Outpatient (CLI) | payer MEDICAID, SELFPAY ==
--- NOTE | 2023-06-10 14:57 | US_ITS ---
PROCEDURE: US OB FOLLOW UP CLINICAL INDICATION: f/u anatomy scan COMPARISON: US US OB /MATERNAL DETAIL from 04/26/2023 FINDINGS: Transabdominal sonographic images of the pelvis were obtained. The following parameters are obtained: From her established due date she is 30 weeks 5 days. Fetus in the cephalic presentation with an anterior placenta grade 3. heart rate: 143bpm bpm. BPD: 31weeks 3days HC: 30weeks 1day AC: 30weeks 3days FL: 30weeks 4days HC/AC: 1.05 FL/BPD: 0.75 FL/AC: 0.22 Growth percentile: 22 S/D ratio-3.37-4.83 Amniotic fluid index: 10.5cm, MVP 3.74 cm. No obvious anomalies evident. profile and nasion seen, stomach, bladder, kidneys, three-vessel cord, four chamber heart, LVOT, RVOT appear normal. IMPRESSION: 1. Viable fetus in the cephalic presentation with an anterior placenta grade 3. The placenta is mature for this early gestational age. 2. The fluid is within normal limits with an amniotic fluid index of 10.5 cm, MVP 3.74 cm. 3. There has been good interval growth with the fetus currently 22nd percentile. 4. SD ratio is slightly elevated at 3.37-4.83. 5. Limited anatomical scan appears normal. 6. breathing movement and movement is seen. 7. Given the early maturity of the placenta I would suggest close monitoring of the growth as well as amniotic fluid. Dictated by: Cale Otero MD 06/10/2023 16:26 Cale Otero MD in [facility] 06/10/2023 16:26
== END 2023-06-10 23:59 ==
LOC: RAD 14:42
PROVIDERS: Visit Provider Obstetrics & Gynecology
DX: Z34.93 Encounter for supervision of normal pregnancy, unspecified, third trimester (principal); Z3A.30 30 weeks gestation of pregnancy
CPT/HCPCS: 76816; 76820

== ENCOUNTER 2023-08-09 06:12 | Inpatient (IN) | payer MEDICAID, SELFPAY ==
[2023-08-09] VITALS (8 sets, daily range): BP systolic 108–116; BP diastolic 6–84; PULSE 49–67; RESP 16–17; TEMP 36.2–36.7; O2SAT 97–98; BMI 23.8
[2023-08-09] MEDS: LACTATED RINGERS 1000ML 2,000 ML 999 ML IV (06:40)
[2023-08-09 06:47] LABS: Basophils # 0.1 K/mm3 (0-0.2); Basophils % 1.3 % (0.1-2.0); Eosinophils # 0.6 K/mm3 (0.0-0.4); Hematocrit 35.1 % (37.0-47.0); Hemoglobin 11.5 g/dL (12.2-16.2); Lymphocytes # 2.4 K/mm3 (0.7-4.5); Lymphocytes % 31.5 % (10-50); Mean Corpuscular HGB Conc 32.6 g/dL (31.8-35.4); Mean Corpuscular Hemoglobin 28.2 pg (27.0-31.2); Mean Corpuscular Volume 86.5 fl (81-99); Mean Platelet Volume 9.2 fl (7.4-10.4); Monocytes # 0.4 K/mm3 (0.1-1.0); Monocytes % 5.2 % (1.7-9.3); Neutrophils # 4.1 K/mm3 (1.8-7.8); Platelet Count 303 K/mm3 (142-424); Red Blood Count 4.06 M/mm3 (4.20-5.40); Red Cell Distribution Width 14.1 % (11.5-17.5); White Blood Count 7.7 K/mm3 (4.8-10.8)
[2023-08-09 06:55] LABS: Alanine Aminotransferase 50 U/L (12-78); Albumin Level 3.5 g/dl (3.5-5.0); Alkaline Phosphatase 197 U/L (38-126); Anion Gap 9.8 mEq/L (5-15); Aspartate Amino Transferase 42 U/L (14-36); Bilirubin,Total 0.5 mg/dl (0.2-1.3); Blood Urea Nitrogen 6 mg/dl (7-17); Calcium 9.1 mg/dl (8.4-10.2); Carbon Dioxide 22 mmol/L (22.0-30.0); Chloride 110 mmol/L (98-107); Creatinine Clearance Estimated 174 mL/min (50-200); Estimated Glomerular Filt Rate 142 ml/min (>60); GFR (African American) 172 ML/MIN (>60); Globulin 3.5 g/dL (1.3-3.2); Glucose 92 mg/dl (74-100); Potassium 3.8 mmoL/L (3.5-5.1); Sodium 138 mmol/L (136-145)
--- NOTE | 2023-08-09 07:48 | P.HP_ITS ---
History of Present Illness *Admission Date: 08/09/23 *Reason for visit:: Repeat delivery *History of present illness: Dawna is a pleasant 33yo -0-0-5 at 39 weeks and 2 days gestation. BRIAN is 08/14/2023 based on second trimester ultrasound. was complicated by late to care, history of previous , and Subutex use in . On presentation patient endorsed good movement and denies any leakage of fluid or vaginal bleeding. A+, antibody negative, rubella immune, hepatitis B negative, hepatitis C negative, RPR negative, HIV negative 1 hour GTT: 69 OBHx: G1: 2013. Vaginal delivery at 40 weeks gestation. 5 pounds 8 ounces. Ma le . Complicated by shoulder dystocia G2: 2015. delivery at 40 weeks gestation. 8 pounds 13 ounces. Female G3: 2017. delivery at 40 weeks gestation. female G4: 2018. delivery at 40 weeks gestation. 7 pounds 2 ounces. female G5: 2020. delivery at 40 weeks gestation. 7 pounds 13 ounces. male infant G6: Current [facility] Disclaimer: The information contained in this section may have been updated after the patient was seen, as this information can be updated by other users. Medical History Right knee injury delivery delivered History of drug abuse Surgical History Previous section x4 Family History Other Alcoholism Anemia Cancer Heart attack Hyperlipidemia Hypertension Kidney disease Stroke Thyroid disorder Social History Smoking Status: Current every day smoker tobacco type: e-cigarettes alcohol intake: never substance use type: former substance user, marijuana and painkillers current occupational status: unemployed Travel in the last 8 weeks: None household members: significant other housing: house Review of Systems Review of Systems Review of systems (narrative): Review of Systems Constitutional: Denies fever, chills, and sweats Eyes: Denies vision change/ pain Respiratory: Denies cough and shortness of breath Cardiovascular: Denies chest pain and lightheadedness Gastrointestinal: Denies abdominal pain. Denies nausea, vomiting. Genitourinary: Denies dysuria and incontinence Musculoskeletal: Denies shoulder pain and back pain Neurological: Denies change in speech or headaches Meds Home Medications and Allergies Home Medications Medication Instructions Recorded Confirmed Type buprenorphine HCl 8 mg sublingual 16 mg sublingual DAILY Withdrawal 04/26/23 08/09/23 History tablet vits no.130-ferrous fum 1 tab PO DAILY Supplement 07/23/23 08/09/23 History 27 mg iron-folic acid 800 mcg tablet ( Vitamin) polyethylene glycol 3350 17 17 g PO DAILY Constipation 08/09/23 08/09/23 History gram/dose oral powder (Miralax) New Prescriptions to Start Prescriptions: Allergies Allergy/AdvReac Type Severity Reaction Status Date / Time No Known Allergies Allergy Verified 08/06/23 13:04 Exam Data for Last 24 hours Vital signs and Labs for Last 24 Hours: Laboratory Results - last 24 hr 08/09/23 06:34: WBC 7.7, RBC 4.06 L, Hgb 11.5 L, Hct 35.1 L, MCV 86.5, MCH 28.2, MCHC 32.6, RDW 14.1, Plt Count 303, MPV 9.2, Neut % (Auto) 54.0, Lymph % (Auto) 31.5, [place] % (Auto) 5.2, Eos % (Auto) 8.0, Baso % (Auto) 1.3, Neut # (Auto) 4.1, Lymph # (Auto) 2.4, [place] # (Auto) 0.4, Eos # (Auto) 0.6 H, Baso # (Auto) 0.1, Sodium 138, Potassium 3.8, Chloride 110 H, Carbon Dioxide 22, Anion Gap 9.8, BUN 6 L, Creatinine 0.50 L, Estimated Creat Clear 174, Estimated GFR 142, Est GFR ( Amer) 172, Glucose 92, Calcium 9.1, Total Bilirubin 0.5, AST 42 H, ALT 50, Alkaline Phosphatase 197 H, Total Protein 7.0, Albumin 3.5, Globulin 3.5 H, Albumin/Globulin Ratio 1.0 L, Blood Type A Positive, Antibody Screen Negative I & O for Last 24 hours: Intake & Output 08/06/23 08/07/23 08/08/23 08/09/23 23:59 23:59 23:59 23:59 Weight 152 lb Narrative: General: patient is alert oriented in no acute distress and responds appropriately to questions. HEENT: NCAT, EOMI, moist mucous membranes, neck supple with full ROM Cardiovascular: RRR +S1/S2, no murmurs or rubs Pulmonary: Clear to auscultation bilaterally, nonlabored breathing, symmetric chest rise Abdominal: Gravid abdomen appropriate for gestation. No guarding, rebound, or tenderness noted. Extremities: trace edema, no tenderness or cyanosis noted Skin: Normal turgor, intact, warm. Negative for erythema, pallor, petechia, or lesions Neurologic: Negative for sensory or motor deficit Psychiatric: Normal affect, normal thought process, good judgment and insight, no depression or anxious mood appreciated. *Routine HEENT Exam Head: Present normocephalic and atraumatic Eye: Present EOMI, PERRL and normal accommodation; Absent conjunctival icterus, scleral injection, nystagmus or exophthalmos ENT: Present mucous membranes moist *Routine Respiratory Exam Respiratory: Present CTA bilaterally, normal respiratory effort, able to speak in complete sentences and symmetric chest movement; Absent accessory muscle use, decreased breath sounds, rales, respiratory distress, wheezes, distant breath sounds or diminished air movement *Routine Cardiovascular Exam Cardiovascular: Present RRR, Normal S1 and Normal S2; Absent murmur or gallop *Routine Abdominal Exam Abdominal: Present soft and normoactive bowel sounds; Absent tenderness, distended, rebound or guarding *Routine Rectal Exam Rectal:: deferred *Routine Genitalia Exam Genitalia:: normal female Assessment and Plan *Assessment and plan (1) Previous section: Problem Comment: x4 Status: Acute Category: Surgical Code(s): Z98.891 - History of uterine scar from previous surgery (2) complicated by subutex maintenance, antepartum: Status: Acute Category: Medical Code(s): O99.320 - Drug use complicating , unspecified trimester; F11.20 - Opioid dependence, uncomplicated (3) Late care: Status: Acute Category: Medical Code(s): O09.30 - Supervision of with insufficient care, unspecified trimester (4) : Status: Acute Category: Medical Code(s): Z34.90 - Encounter for supervision of normal , unspecified, unspecified trimester (5) delivery, delivered, current hospitalization: Status: Acute Category: Medical Code(s): O82 - Encounter for delivery without indication Plan - Monitor vitals - Admit to L&D for scheduled repeat delivery - Blood type: A+ - Hemoglobin: 11.5, Plt: 303 - Plan for spinal anesthesia - Anticipate vaginal delivery of Male infant: Marquez - monitor infant for signs of withdrawal secondary to Subutex use
--- NOTE | 2023-08-09 07:58 | HMH.PHAINT1 ---
Pharmacy Intervention Comments: MEDICATION RECONCILIATION COMPLETED ON PATIENT USING EXTERNAL FILL HISTORY FROM PHARMACY AND JATINDER REPORT. -RADHA BRITT, DEIDRAD
--- NOTE | 2023-08-09 08:58 | P.OP_ITS ---
Date of procedure: 08/09/23 Pre-op Diagnosis:: 1. 39 weeks 2days gestation, [place] 2. Previous delivery 3. Subutex use in 4. Late to care 5. Rh Positive Post-op Diagnosis:: 1. 39 weeks 2days gestation, [place] 2. Previous delivery 3. Subutex use in 4. Late to care 5. Rh Positive Procedure performed:: Repeat Delivery Surgeon:: Jessica Rodrigez DO Rn Hospice(s):: [facility] Vaughn DO TECHNICAL SALES SUPPORT MANAGER:: Kurt Ball Anesthesia: spinal Estimated blood loss (mL): 250 Operative findings:: 1. Live viable Male infant: Marquez. Weight: 7pounds 11ounces. Apgars 7 and 9 at 1 and 5 minutes respectively 2. Normal-appearing fallopian tubes and ovaries bilaterally Operative note:: Summary: Repeat low-transverse delivery Procedure explained in its entirety. The patient was counseled on the risks and benefits of section including bleeding, vascular injury, infection, and injury to the surrounding structures. Hemorrhage requiring life saving blood transfusion resulting in blood born viral infection or allergic reaction was explained and the patient consented to blood transfusion. Possible need for further operative measures prolonging recovery time and hospitalization reviewed to include hysterectomy. Procedure explained in its entirety and patient had no further questions. Consented to procedure. The patient was taken back to the operating room where adequate spinal anesthesia was obtained. Pneumatic compression stockings applied to lower extremities. Ancef 2g was given for infection prophylaxis. She was placed in the dorsal supine position Urinary catheter was placed and found to be draining clear urine. The patient was prepped and draped in sterile fashion. Anesthesia was tested and and found to be adequate. A Pfannenstiel skin incision was made with the scalpel. Subcutaneous bleeding vessels were cauterized with the bovie. There was very very little subcutaneous fat and it was very scarred to the fascia. The incision was taken down to the fascia with the bovie. The fascia was knicked in the midline and sharply extended laterally. The superior aspect of the fascia was grasped with Kalina clamps and the rectus muscle was taken down bluntly. There was surprisingly little scar tissue in this area. The rectus muscle was sharply dissected from the midline with Mayos. This process was repeated inferiorly. The rectus muscles were in the midline. This process was difficult as there was more scarring to the rectus muscles. Peritoneum was identified and bluntly entered. There was significant scarring of the bladder to the anterior uterine wall. This was carefully taken down with Metzenbaum scissors and close to the uterine serosal wall. Secondary to significant scarring and an adequate room for delivery of the fetus a Maylard incision was made on the patient's left rectus muscle. Wesley O retractor was placed and the bladder was noted to be out of the operative field. The lower uterine segment was easily identified, sharply incised, and entered bluntly with the surgeon's index finger. Incision was then extended in a superior and in ferior fashion by blunt separation. Membranes were ruptured revealing clear fluid. The fetus was in cephalic presentation. The head was carefully elevated out of the pelvis. Fundal pressure was applied when head was brought into incision. The infants head was delivered without difficulty. The shoulder and body followed without complication. The mouth and nose were suctioned with a bulb. The umbilical cord was clamped and cut. Infant was taken to warmer for evaluation by the repeat photocomposing machine operator. Cord blood was collected for routine testing. The placenta was delivered and IV Pitocin was initiated. Inside of the uterus was gently cleared of blood and clots with lap sponge. The hysterotomy was closed with 0 Vicryl in a running locked fashion. A [id number] stitch was placed just right of midline of the hysterotomy to make it hemostatic. The lower uterine segment was visualized and noted to be hemostatic. The gutters were inspected bilaterally and cleared of blood and clots with lap sponges. Wesley O retractor was removed. The uterine incision was reinspected and hemostasis noted. There were a few small oozing areas where the bladder was required to be taken down and Lottie powder was applied for hemostasis prophylaxis. Peritoneum was not able to be easily identified and the rectus muscles were reapproximated well. Decision was made not to the rectus muscles or the peritoneum. The fascia was closed in a running nonlocked fashion using 0 Vicryl x2 meeting right of midline. Fascia was noted as not having gaps or defects. The subcutaneous fat was closed with 2-0 Monocryl. Skin was closed with the INSORB suture in a subcuticular fashion. Patient tolerated the procedure well and all counts were correct x3, per nursing. Patient was taken to OB PACU and was stable in recovery room. Condition: stable Disposition: PACU Specimens:: Live viable male Placenta Cord blood Complications:: None
--- NOTE | 2023-08-09 09:12 | EXP.ANES.CKL ---
[facility] Disclaimer: The information contained in this section may have been updated after the patient was seen, as this information can be updated by other users. Medical History Right knee injury delivery delivered History of drug abuse Surgical History Previous section x4 Family History Other Alcoholism Anemia Cancer Heart attack Hyperlipidemia Hypertension Kidney disease Stroke Thyroid disorder Social History Smoking Status: Current every day smoker tobacco type: e-cigarettes alcohol intake: never substance use type: former substance user, marijuana and painkillers current occupational status: unemployed Travel in the last 8 weeks: None household members: significant other housing: house [facility] Anesthesia Checklist Patient Identification Patient Identification: Arm Band Structural Data Admitted From: Inpatient Planned Operative Procedure/s: Repeat C/S Consent for Planned Operative Procedure(s) Verified: Yes Verified Documents: Surgical Consent and History and Physical NPO Status Verified Time NPO: 00:00 Additional verifications Anesthesia Reactions: No Airway Assessment Mallampati Score:: Class II C-Spine Mobility Assessed: Yes TMJ Mobility Assessed: Yes Dentition: Poor Dentition Neurological Assessment Level of Consciousness: Awake and Alert Anesthesia Plan Anesthesia Risk discussed: Yes Anesthesia Plan: Verified ASA Class: II Anesthesia Type: Spinal (with Bilateral TAP Block)
--- NOTE | 2023-08-09 09:13 | P.PNANES_ITS ---
[facility] Anesthesia Record Part I Anesthesia Record I Intake, IV Amount: 2,000 Hydration: Adequate Estimated blood loss (mL): 250 Urine output (mL): 200 Blood Products used (#): none Blood Pressure: 108/64 SaO2: 98 Pulse Rate: 49 Airway Patency: Patent Respiratory Rate: 16 Temperature: 97.1 F Patient is:: Awake and Stable Stable to PACU at:: 09:05
--- NOTE | 2023-08-09 09:36 | SUR.PHASEI ---
0935- detailed report given to anshu ferraro in pt room. All VSS, dressings CDI.
[2023-08-09] MEDS: LACTATED RINGERS 1000ML 1,000 ML 125 ML IV (09:45)
[2023-08-09] MEDS: OXYTOCIN/RINGERS LACTATE 30 UNITS/500 ML BAG 40 UNITS IV (10:05)
[2023-08-09 11:13] LABS: Microscopic, Urine URINE MICROSCOPIC (MICROSCOPIC)
[2023-08-09 11:14] LABS: Appearance,Urine CLEAR (Clear); Bilirubin,Urine Negative (Negative); Blood, Urine Negative (Negative); Color,Urine YELLOW (Yellow); Glucose,Urine (UA) Negative (Negative); Ketones,Urine Negative (Negative); Leukocyte Esterase,Urine Negative (Negative); Nitrate,Urine Negative (Negative); PH,Urine 7.5 (5.0-8.5); Protein,Urine Negative (Negative); Urobilinogen,Urine 0.2 EU/dl (0.2)
[2023-08-09 11:25] LABS: Bacteria,Urine Trace /lpf; Squamous Epithelial Cell,Urine Occasional #/hpf (0-5); WBC,Urine Occasional #/hpf (0-3)
[2023-08-09 11:26] LABS: Amphetamine/Metha Screen,Urine Negative ng/ml (<1000); Barbiturates Screen,Urine Negative ng/ml (<200)
[2023-08-09 11:27] LABS: Benzodiazepines Screen,Urine Negative ng/ml (<200)
[2023-08-09 11:28] LABS: Cannabinoid Screen,Urine Negative ng/ml (<50); Cocaine Screen,Urine Negative ng/ml (<300)
[2023-08-09 11:29] LABS: Methadone Screen,Urine Negative ng/ml (<300)
[2023-08-09 11:30] LABS: Phencyclidine Screen,Urine Negative ng/ml (<25)
[2023-08-09 11:31] LABS: Opiate Screen,Urine Negative ng/ml (<300)
--- NOTE | 2023-08-09 11:47 | SW/DCPLANNER ---
Addendum entered by Jud Rodrigues 08/16/23 08:09: Infant cord screen is positive for Suboxone/Subutex. Original Note: I received a consult on this patient regarding: late care. Patient stated that she did not find out she was till 24 weeks. Patient is currently enrolled in Suboxone/Subutex Clinic ([facility]) and this has been verified by Pharmacy per nursing staff. Patient stated that she does go to [facility] once a week. Patient delivered male today 08/09/23 (Marquez Alvarenga). 's father (Esteban Alvarenga 09/17/83) was present at the time of my visit. Patient, Esteban and infant will reside at [address] [place] [address] in [facility]. Patient's contact number is [phone]. Patient stated that she does have five other children that her mother/sister currently have custody of at this time. Patient is currently established w/ WIC. Patient stated that she has the following items at home: crib, carseat, clothing, diaper and will be breast feeding. Discharge date is unknown at this time. Per OB nursing staff patient is currently appropriate w/ infant. OB staff will continue to follow up w/ infant and report to Central Intake if necessary over the weekend. I will follow up w/ OB staff Saturday morning regarding patient/infant. Infant cord has been collected.
[2023-08-09] MEDS: ACETAMINOPHEN 500MG TAB 1000 MG PO ×3 (11:53→23:58)
--- NOTE | 2023-08-09 13:37 | EXP.ANES.II ---
[facility] Anesthesia Record Part II Anesthesia Record Part II Discharge Time: 09:35 Destination: Obstetric PACU nurse assessment reviewed?: Yes Patient Condition:: Good Anesthesia Complications:: None Swallowing reflex intact?: Yes Airway Patency: Patent Cyanosis?: No Blood Pressure: 114/6 SaO2: 98 Respiratory Rate: 16 Pulse Rate: 52 Temperature: 97.2 F Mental Status: Alert & Oriented Pain level:: 0 Nausea and/or vomitting:: None Intake, IV Amount: 0 Hydration: Adequate
[2023-08-09] MEDS: KETOROLAC 30MG/ML VIAL 30 MG IV ×2 (14:14→21:31)
[2023-08-09] MEDS: PRENATAL MULTIVITAMIN W/IRON 1 EACH PO (17:02)
[2023-08-10] MEDS: KETOROLAC 30MG/ML VIAL 30 MG IV ×2 (03:30→09:50)
[2023-08-10] MEDS: ACETAMINOPHEN 500MG TAB 1000 MG PO ×4 (06:18→23:53)
[2023-08-10 07:49] VITALS: BP 106/63; PULSE 44; RESP 18; TEMP 36.8; O2SAT 98
[2023-08-10 07:52] LABS: Basophils # 0.1 K/mm3 (0-0.2); Basophils % 0.6 % (0.1-2.0); Eosinophils # 0.4 K/mm3 (0.0-0.4); Eosinophils % 4.9 % (0.1-12.0); Hematocrit 31.5 % (37.0-47.0); Hemoglobin 10.3 g/dL (12.2-16.2); Lymphocytes # 2.5 K/mm3 (0.7-4.5); Lymphocytes % 27.3 % (10-50); Mean Corpuscular HGB Conc 32.8 g/dL (31.8-35.4); Mean Corpuscular Hemoglobin 28.7 pg (27.0-31.2); Mean Corpuscular Volume 87.5 fl (81-99); Mean Platelet Volume 9.8 fl (7.4-10.4); Monocytes # 0.4 K/mm3 (0.1-1.0); Monocytes % 4.9 % (1.7-9.3); Neutrophils # 5.6 K/mm3 (1.8-7.8); Neutrophils % 62.2 % (37.0-80.0); Platelet Count 257 K/mm3 (142-424); Red Cell Distribution Width 14.4 % (11.5-17.5)
--- NOTE | 2023-08-10 08:30 | P.PN_ITS ---
Date: 08/10/23 Time: 08:30 Noted: doing well Objective Objective: Last Vital Signs:: Last Vital Signs Temp 98.1 F 08/09/23 17:00 Pulse 67 08/09/23 17:00 Resp 16 08/09/23 17:00 BP 113/52 L 08/09/23 17:00 Pulse Ox 97 08/09/23 17:00 O2 Del Method Room Air 08/09/23 17:00 Test Results for Last 24 Hours: Laboratory Results - last 24 hr 08/09/23 07:46: Urine Color Yellow, Urine Appearance Clear, Urine pH 7.5, Ur Specific [place] 1.010, Urine Protein Negative, Urine Glucose (UA) Negative, Urine Ketones Negative, Urine Blood Negative, Urine Nitrate Negative, Urine Bilirubin Negative, Urine Urobilinogen 0.2, Ur Leukocyte Esterase Negative, Urine RBC None, Urine WBC Occasional, Ur Squamous Epith Cells Occasional, Urine Bacteria Trace, Urine Opiates Screen Negative, Urine Methadone Screen Negative, Ur Barbituates Screen Negative, Ur Phencyclidine Scrn Negative, Ur Amphetamines Screen Negative, U Benzodiazepines Scrn Negative, Urine Cocaine Screen Negative, U Marijuana (THC) Screen Negative 08/10/23 07:10: WBC 9.0, RBC 3.60 L, Hgb 10.3 L, Hct 31.5 L, MCV 87.5, MCH 28.7, MCHC 32.8, RDW 14.4, Plt Count 257, MPV 9.8, Neut % (Auto) 62.2, Lymph % (Auto) 27.3, [place] % (Auto) 4.9, Eos % (Auto) 4.9, Baso % (Auto) 0.6, Neut # (Auto) 5.6, Lymph # (Auto) 2.5, [place] # (Auto) 0.4, Eos # (Auto) 0.4, Baso # (Auto) 0.1 [facility] NB Plan Plan Current Active Problems (Updated 08/09/23 @ 08:57 by Jessica Rodrigez DO) delivery, delivered, current hospitalization (Acute) Previous section (Acute) complicated by subutex maintenance, antepartum (Acute) Late care (Acute) (Acute) Medications: Current Medications Acetaminophen (Acetaminophen 500mg Tab) 1,000 mg PO Q6H JUDITH Stop: 09/08/23 11:29 Last Admin: 08/10/23 06:18 Dose: 1,000 mg Al Hydrox/Mg Hydrox/Simethicone (Aluminum/Magnesium/Simethicone 30ml Udc) 30 ml PO Q4HP PRN PRN Reason: Dyspepsia Stop: 09/08/23 11:21 Benzocaine/Menthol (Benzocaine-Menthol [place] 56gm Can) 0 gm TP NEEDED PRN PRN Reason: Vaginal Irritation Stop: 09/08/23 11:21 Buprenorphine HCl (Buprenorphine 8mg Odt) 16 mg SL DAILY [facility] Stop: 09/09/23 08:59 Diphenhydramine HCl (Diphenhydramine 25mg Capsule) 25 mg PO Q6HP PRN PRN Reason: Itching Stop: 09/08/23 11:21 Emollient Ointment (Lanolin Cream 40gm) 0 gm TP NEEDED PRN PRN Reason: Breast Tenderness Stop: 09/08/23 11:21 Glycerin (Glycerin Adult 3gm Supp) 3 gm RC NEEDED PRN PRN Reason: Constipation Stop: 09/08/23 11:21 Lactated Ringer's (Lactated Ringer's 1000 Ml Bag) 1,000 mls @ 125 mls/hr IV .Q8H [facility] Stop: 09/08/23 11:29 Last Admin: 08/09/23 09:45 Dose: 125 mls/hr Oxytocin/Lactated Ringer's (Pitocin 30 Units/Lr 500ml Iv) 30 units in 500 mls @ 40 mls/hr IV .[id number] [facility] Stop: 09/08/23 11:29 Last Admin: 08/09/23 10:05 Dose: 40 mls/hr Ibuprofen (Ibuprofen 400 Mg Tablet) 800 mg PO Q8H [facility] Stop: 09/09/23 11:29 Ketorolac Tromethamine (Ketorolac 30mg/Ml Vial) 30 mg IV Q6H [facility] Stop: 08/14/23 08:59 Last Admin: 08/10/23 03:30 Dose: 30 mg Measles/Mumps/Rubella Vaccine Live (Measles,Mumps,Rubella Vaccine Vial) 0.5 ml SQ NEEDED PRN PRN Reason: Immunization Stop: 09/08/23 11:21 Nicotine (Nicotine 21mg/24hr Patch) 21 mg TD DAILYP PRN PRN Reason: Smoking Cessation Stop: 09/08/23 11:21 Oxycodone HCl (Oxycodone 5mg Immediate Release Tablet) 5 mg PO Q4HP PRN PRN Reason: Moderate Pain (4-6) Stop: 09/08/23 11:21 Polyethylene Glycol (Polyethylene Glycol 3350 238gm Powder) 17 gm PO DAILY JUDITH Stop: 09/09/23 08:59 Multivit/Folic Acid/Iron ( Multivitamin W/Iron) 1 each PO 1700 JUDITH Stop: 09/08/23 16:59 Last Admin: 08/09/23 17:02 Dose: 1 each Promethazine HCl (Promethazine Hcl 25mg/Ml 1ml Vial) 12.5 mg IV Q4HP PRN PRN Reason: Nausea And Vomiting Stop: 08/10/23 11:22 Sennosides (Senna 8.6mg Tablet) 8.6 mg PO BIDP PRN PRN Reason: Constipation Stop: 09/08/23 11:21 Simethicone (Simethicone 80mg Chewable Tablet) 160 mg PO Q4HP PRN PRN Reason: Gas Pain and Discomfort Stop: 09/08/23 11:21 Sodium Chloride (Sodium Chloride 0.9% 10ml Flush Syringe) 10 ml IV NEEDED PRN PRN Reason: Maintain IV Site Stop: 09/08/23 11:21 Sodium Chloride (Sodium Chloride 0.9% 25ml Bag) 25 ml IV NEEDED PRN PRN Reason: for Use with IV Promethazine Stop: 09/08/23 11:21 Tetanus/Reduced Diphtheria/Acell Pertussis (Tet/Diphth/Pert-Adult 0.5ml Syringe) 0.5 ml IM NEEDED PRN PRN Reason: Immunization Stop: 09/08/23 11:21 Witch Angela (Witch Angela 40 Pads/Box) 1 each TP NEEDED PRN PRN Reason: Hemorrhoids Stop: 09/08/23 11:21
[2023-08-10] MEDS: BUPRENORPHINE 8MG ODT 16 MG SL (09:49)
[2023-08-10] MEDS: POLYETHYLENE GLYCOL 3350 238GM POWDER 17 GM PO (09:51)
--- NOTE | 2023-08-10 10:56 | PC.NURSE ---
late entry: 948 During am med pass, pt states that she takes 8mg in the morning and 8 mg in the afternoon of Subutex. pt given 8mg subutex this am. primary RN Jeni Ricardo notified. medical lab scientist by Jose G ALEGRIA
--- NOTE | 2023-08-10 11:45 | EXP.ACUTE.PN ---
Subjective *Date: 08/10/23 *Time: 11:45 Interval history: POD # 1 s/p RLTCS Feeling well. Pain controlled. Breast feeding. Lochia is appropriate. Voiding without difficulty and passing flatus. Tolerating regular diet. Denies fever/chills, chest pain and shortness of breath. No headaches, vision changes, lightheadedness/dizziness. No lower extremity swelling. Ambulating well ad edda. Medical Exam Vital signs and Labs for Last 24 Hours: Vital Signs Temp Pulse Resp BP Pulse Ox O2 Del Method 08/10/23 07:49 98.2 F 44 L 18 106/63 L 98 Room Air 08/09/23 17:00 98.1 F 67 16 113/52 L 97 Room Air 08/09/23 13:37 16 Intake and Output 08/09/23 08/10/23 08/10/23 23:59 07:59 15:59 Output Total 1000 / 1000 Balance -1000 / 1000 Output: Output, Urine Amount (Catheter) 1000 / 1000 Lr 1000 / 1000 Laboratory Results - last 24 hr 08/10/23 07:10: WBC 9.0, RBC 3.60 L, Hgb 10.3 L, Hct 31.5 L, MCV 87.5, MCH 28.7, MCHC 32.8, RDW 14.4, Plt Count 257, MPV 9.8, Neut % (Auto) 62.2, Lymph % (Auto) 27.3, [place] % (Auto) 4.9, Eos % (Auto) 4.9, Baso % (Auto) 0.6, Neut # (Auto) 5.6, Lymph # (Auto) 2.5, [place] # (Auto) 0.4, Eos # (Auto) 0.4, Baso # (Auto) 0.1 I & O for Labs for Last 24 Hours: Intake & Output 08/07/23 08/08/23 08/09/23 08/10/23 23:59 23:59 23:59 23:59 Intake Total 1999 Output Total 1000 / 1000 Balance 1000 / 1000 Weight 152 lb Head: Present atraumatic and normocephalic ENT: Present mucous membranes moist Neck: Present full ROM Respiratory: Present CTA bilaterally and normal respiratory effort Cardiac: Present Reg Rate and Rhythm GI: Present soft; Absent distention or tenderness Comments:: Uterine fundus firm and below umbilicus, pfannenstiel incision clean/dry/intact with steri strips in place Rectal (female): Present deferred (female): Present deferred Extremities: Present full ROM; Absent edema or calf tenderness Neuro: Present alert, awake and moves all extremities Assessment and Plan *Assessment and plan (1) delivery, delivered, current hospitalization: Status: Acute Category: Medical Code(s): O82 - Encounter for delivery without indication (2) complicated by subutex maintenance, antepartum: Status: Acute Category: Medical Code(s): O99.320 - Drug use complicating , unspecified trimester; F11.20 - Opioid dependence, uncomplicated (3) Late care: Status: Acute Category: Medical Code(s): O09.30 - Supervision of with insufficient care, unspecified trimester (4) Previous section: Problem Comment: x4 Status: Acute Category: Surgical Code(s): Z98.891 - History of uterine scar from previous surgery (5) Acute blood loss anemia: Status: Acute Category: Medical Code(s): D62 - Acute posthemorrhagic anemia Plan Continue routine care Encouraged increased ambulation Plan d/c home tomorrow, POD # 2
--- NOTE | 2023-08-10 16:05 | PC.NURSE ---
Addendum entered by Jud Rodrigues 08/12/23 14:08: Per OB nursing staff (Jeni) this case does NOT meet criteria for investigation. Addendum entered by Jud Rodrigues 08/12/23 09:02: Per Central Intake case is still being processed at this time. Original Note: SPOKE WITH CENTRAL INTAKE- WEB ID [id number] CENTRAL INTAKE GOING TO SPEAK WITH [facility] DIMETHYLANILINE SULFATOR OPERATOR
[2023-08-10] MEDS: PRENATAL MULTIVITAMIN W/IRON 1 EACH PO (17:43)
[2023-08-10] MEDS: IBUPROFEN 400 MG TABLET 800 MG PO (19:58)
[2023-08-11] MEDS: IBUPROFEN 400 MG TABLET 800 MG PO (04:54)
[2023-08-11] MEDS: ACETAMINOPHEN 500MG TAB 1000 MG PO (04:54)
[2023-08-11 08:00] VITALS: BP 119/66; PULSE 66; RESP 16; TEMP 36.6; O2SAT 99
[2023-08-11] MEDS: POLYETHYLENE GLYCOL 3350 238GM POWDER 17 GM PO (08:05)
[2023-08-11] MEDS: BUPRENORPHINE 8MG ODT 16 MG SL (08:07)
--- NOTE | 2023-08-11 10:15 | EXP.DC.SUM ---
General Admission date:: 08/09/23 Discharge date: 08/11/23 HPI HPI HPI: PPD # 2 s/p RLTCS Feeling well. Pain controlled. Breast feeding. Light lochia. Voiding without difficulty and passing flatus. Tolerating regular diet. Denies fever/chills, chest pain and shortness of breath. No headaches, vision changes, lightheadedness/dizziness. No lower extremity swelling. Ambulating well ad edda. Hospital Course Hospital Course Hospital Course: Ms Dawna Márquez is a pleasant 33yo -0-0-5 at 39 weeks and 2 days gestation. BRIAN is 08/14/2023 based on second trimester ultrasound. was complicated by late to care, history of previous , and Subutex use in . She underwent a repeat on 08/09/23. She delivered a live male baby, Marquez, weighing 7 lb 11 oz. APGARs 7 (1 min), 9 (5 min). KSC878 mL. She did well /postoperatively. Pain controlled. Breast feeding. Light lochia. Voiding without difficulty and passing flatus. Tolerating regular diet. Denies fever/chills, chest pain and shortness of breath. No headaches, dizziness/lightheadedness or vision changes. Vital signs stable, afebrile. Heart regular rate and rhythm. Lungs clear to auscultation. Abdomen soft, nontender. No lower extremity swelling. Ambulating well ad edda. Normal hospital course. She was discharged to home but stayed to guest on POD # 2 with instructions to follow-up in the office in 2 weeks or sooner if needed. Exam Data for Last 24 hours Vital signs and Labs for Last 24 Hours: Temp Pulse Resp BP Pulse Ox O2 Del Method 97.9 F 66 16 119/66 99 Room Air 08/11/23 08:00 08/11/23 08:00 08/11/23 08:00 08/11/23 08:00 08/11/23 08:00 08/11/23 08:00 I & O for Last 24 hours: Intake & Output 08/08/23 08/09/23 08/10/23 08/11/23 23:59 23:59 23:59 23:59 Intake Total 1999 / 1999 Output Total 1000 / 1000 Balance 1000 / 1000 Weight 152 lb Constitutional Constitutional: no acute distress and cooperative *Routine HEENT Exam Head: Present normocephalic and atraumatic Eye: Absent conjunctivae pink ENT: Present mucous membranes moist Comments: + poor dentition *Routine Neck Exam Neck: Present full ROM *Routine Respiratory Exam Respiratory: Present CTA bilaterally and normal respiratory effort *Routine Cardiovascular Exam Cardiovascular: Present RRR *Routine Abdominal Exam Abdominal: Present soft and normoactive bowel sounds; Absent tenderness or distended Comments: Uterine fundus firm and below umbilicus, pfannenstiel incision clean/dry/intact with steri strips in place *Routine Rectal Exam Patient deferred: visual exam *Routine Exam Patient deferred: external exam *Routine Extremities Exam Extremities: Present full ROM; Absent edema or calf tenderness *Routine Neurological Exam Neurological: Present alert, moving all extremities and normal speech Routine Psychiatric Exam Psychiatric: Present normal affect and cooperative DS: Diagnosis Discharge Diagnosis (1) delivery, delivered, current hospitalization: Status: Acute Code(s): O82 - Encounter for delivery without indication (2) complicated by subutex maintenance, antepartum: Status: Acute Code(s): O99.320 - Drug use complicating , unspecified trimester; F11.20 - Opioid dependence, uncomplicated (3) Late care: Status: Acute Code(s): O09.30 - Supervision of with insufficient care, unspecified trimester (4) Previous section: Status: Acute Code(s): Z98.891 - History of uterine scar from previous surgery Problem details: x4 (5) Acute blood loss anemia: Status: Acute Code(s): D62 - Acute posthemorrhagic anemia Meds Home Medications and Allergies Home Medications Medication Instructions Recorded Confirmed Type buprenorphine HCl 8 mg sublingual 16 mg sublingual DAILY Withdrawal 04/26/23 08/09/23 History tablet vits no.130-ferrous fum 1 tab PO DAILY Supplement 07/23/23 08/09/23 History 27 mg iron-folic acid 800 mcg tablet ( Vitamin) polyethylene glycol 3350 17 17 g PO DAILY Constipation 08/09/23 08/09/23 History gram/dose oral powder (Miralax) ibuprofen 800 mg tablet 800 mg PO Q8H PRN pain #20 tabs 08/11/23 Rx New Prescriptions to Start Prescriptions: Dawna Ríos Allergies Allergy/AdvReac Type Severity Reaction Status Date / Time No Known Allergies Allergy Verified 08/06/23 13:04 Discharge Plan Disposition Patient Disposition: Home, Self-Care Condition: Good Discharge Order Discharge Orders: Discharge Order (Routine); Ordered 08/11/23 Ordered By: Dawna Vaughn Follow up Plan Follow up with: Dawna Vaughn DO [Staff Physician] - Enter time for follow up Prescriptions/Medication Reconciliation: New ibuprofen 800 mg tablet 800 mg PO Q8H PRN (Reason: pain) Qty: 20 0RF Continued buprenorphine HCl 8 mg tablet, sublingual 16 mg sublingual DAILY Vitamin 27 mg iron- 800 mcg tablet 1 tab PO DAILY polyethylene glycol 3350 [Miralax] 17 gram/dose powder 17 g PO DAILY Problem Reconciliation Problems Reviewed?: Yes Patient Discharge Instructions ACTIVITY: Limited activity DIET: continue same diet and regular diet Additional Instructions: Discharge: 1. Take 800 mg Ibuprofen every 8 hours as needed for pain. You can also take 500-1000 mg of Tylenol in between doses, every 6-8 hours. 2. Nothing in the vagina for 6 weeks - no intercourse, douching or tampons. No tub baths/hot tubs or swimming pools - Drink plenty of fluids. - No strenuous activity or driving until released by your doctor. - Don't lift anything heavier than your . 3. Reasons to return to L&D or call On-Call doctor - fever (greater than 100.4) - heavy vaginal bleeding (soaking through 1 pad in less than 2 hours) - vaginal discharge (malodorous and/or purulent) - severe headaches not resolved by medication or rest and leg tenderness/edema 4. depression/blues - Normal to feel anxious/overwhelmed for first 2 weeks - Talk to your doctor if: severe anxiety, trouble bonding with baby, withdrawing from other family members, thoughts of harming yourself or others Patient Instructions: Depression, Hemorrhage, DI for , DI for Pre-eclampsia, [facility] Post Discharge Instructions Providers Primary Care Provider: Provider,Referral Admit Provider: Jessica Rodrigez Attending Provider: Jessica Rodrigez
--- NOTE | 2023-08-11 10:31 | PC.NURSE ---
Pt. will be d/c from hospital care. She will stay with until his d/c.
[2023-08-13 10:14] LABS: Buprenorphine, Urine Positive (Cutoff=10)
== END 2023-08-11 12:15 | disposition home or self-care (01) | DRG 787 ==
PROVIDERS: Admitting Provider Obstetrics & Gynecology; Visit Provider Obstetrics & Gynecology
PROC: 10D00Z1 Extraction of Products of Conception, Low, Open Approach (ICD-10-PCS; CPT 59514; principal; 2023-08-09 07:30)
DX: O34.211 Maternal care for low transverse scar from previous cesarean delivery (principal); O99.324 Drug use complicating childbirth; O99.334 Smoking (tobacco) complicating childbirth; Z3A.39 39 weeks gestation of pregnancy; Z37.0 Single live birth
CPT/HCPCS: 59514; 59025; 80053; 80307; 81001; 85025; 86850; 94761; C9290; G0283; J0571; J2405

== ENCOUNTER 2024-11-03 16:22 | Outpatient (CLI) | payer OTHER, SELFPAY ==
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
--- OUTSIDE RECORDS SUMMARY | 2024-11-03 16:25 | XMS_ITS | Encounter Summary ---
Author Organization [place] [address] Care Team Providers Care Medical Record Administrator Name Role Phone Lindsey Pulido MD Primary Care Provider [phone] Terri Spence RN Unavailable Unavaila ble Jordyn Adams RN Unavailable Unavail able Terri Spence RN Unavailable Unavaila ble Reason for Visit * Reason Onset Date Comments Medication Refill 05/29/2017 Encounter Details Date Type Department Care Team (Late st Contact Info) Description 05/29/2017 Refill EDG [address] [place] [address] Cristal Ladd, DO [address] [place] [address] Medication Refill Social History Tobacco Use Types Packs/Day Years Used Date Smoking Tobacco: Former Cigarettes 0.5 4 0 01/13/2013 - 09/10/2016 Smokeless Tobacco: Never Comments:8.27.15- with confi rmation of Alcohol Use Standard Drinks/Week Comments No 0 (1 standard drink = 0.6 oz pur e alcohol) Sexually Active Control Partners Comments Yes Other-see comments Male Comments No Sex and Gender Information Value Date Recorded Sex Assigned at Not on file Legal Sex Female 10:49 PM EDT Gender Identity Not on file Sexual Orientation Not on file documented as of this encounter Functional Status * Is the person deaf or does he/she have serious difficulty hearing? Answer Date of Assessment Author No 04/23/2017 1:28 PM Jose E Lu RN * Is the person blind or does he/she have serious difficulty seeing even when wearing glasses? Answer Date of Assessment Author No 04/23/2017 1:28 PM Jose E Lu RN * Does this person have serious difficulty walking or climbing stairs? Answer Date of Assessment Author No 04/23/2017 1:28 PM Jose E Lu RN * Does this person have difficulty dressing or bathing? Answer Date of Assessment Author No 04/23/2017 1:28 PM Jose E Lu RN * Because of a physical, mental or emotional condition, does this person have difficulty doing errands alone such as visiting a doctor's office or shopping? Answer Date of Assessment Author No 04/23/2017 1:28 PM Jose E Lu RN documented as of this encounter Mental Status * Because of a physical, mental or emotional condition, does this person have serious difficulty concentrating, remembering or making decisions? Answer Entry Date Author No 04/23/2017 1:28 PM Jose E Lu RN documented in this encounter Plan of Treatment Not on file documented as of this encounter Goals Goal Patient Goal Type Associated Problems Recent Progress Patient-Stated? Author Maintain a healthy diet, exercise regularly and maintain an ideal body weight General No Lois Garza LPN Stay Tobacco Free Lifestyle No Lois Garza LPN documented as of this encounter Visit Diagnoses Not on filedocumented in this encounter Additional Health Concerns Infection Onset Date Last Indicated Resolved Time ESBL organism 08/03/2019 08/03/2019 10/12/2019 6:4 8 AM EDT R/O COVID-19 11/07/2022 11/07/2022 11/07/2022 7:47 PM EDT documented as of this encounter Care Teams Medical Record Administrator Relationship Specialty Start Date End Date Lindsey Pulido MD [address] [place] [address] PCP - General Family Medicine 10/02/17 Terri Spence, RN Environmental Laboratory Technician Registered Nurse 06/11/19 0 Jordyn Adams RN Environmental Laboratory Technician 10/19/19 0 Terri Spence, RN Environmental Laboratory Technician Registered Nurse 10/07/20 documented as of this encounter
--- OUTSIDE RECORDS SUMMARY | 2024-11-03 16:25 | XMS_ITS | Encounter Summary ---
Author Organization [place] [address] Care Team Providers Care Child Nurse Name Role Phone Lindsey Pulido MD Primary Care Provider [phone] Terri Spence RN Unavailable Unavaila ble Jordyn Adams RN Unavailable Unavail able Terri Spence RN Unavailable Unavaila ble Reason for Visit * Reason Onset Date Comments Medication Refill 05/03/2017 Encounter Details Date Type Department Care Team (Late st Contact Info) Description 05/03/2017 Refill [facility] [address] [place] [phone] Maria C Ashraf MD [address] [place] [address] Medication Refill Social History Tobacco Use Types Packs/Day Years Used Date Smoking Tobacco: Former Cigarettes 0.5 4 0 01/13/2013 - 09/10/2016 Smokeless Tobacco: Never Comments:8.27.15- with confi rmation of Alcohol Use Standard Drinks/Week Comments No 0 (1 standard drink = 0.6 oz pur e alcohol) Sexually Active Control Partners Comments Yes Other-see comments Male Comments Yes Sex and Gender Information Value Date Recorded [...] documented as of this encounter Care Teams Child Nurse Relationship Specialty Start Date End Date Lindsey Pulido MD [address] [place] [address] PCP - General Family Medicine 10/02/17 Terri Spence, RN Private Secretary Registered Nurse 06/11/19 0 Jordyn Adams RN Private Secretary 10/19/19 0 Terri Spence, GISELLA Private Secretary Registered Nurse 10/07/20 documented as of this encounter
--- OUTSIDE RECORDS SUMMARY | 2024-11-03 16:25 | XMS_ITS | Clinical Summary ---
Author Organization [employer] Address [address] [place], [place] [address] Phone Care Team Providers Care Veneer Marker Name Role Phone Maria C Ashraf MD Primary Care Physician [phone] [ ] Conditions or Problems Problem Name Problem Code Onset Date Status Entry Date Provider Comment Standard Description Annotate Decreased movement, third trimester 662980000 (SNOMED CT) 06/25 Active 06/25 Maria C Ashraf MD Reduced movement Body mass index (BMI) 29.0-29.9; adult Z68.29 (ICD-10-CM ) 06/25 Active 06/25 Maria C Ashraf MD Body mass index [BMI] 29.0-29.9, adult Body mass index (BMI) 28.0-28.9; adult Z68.28 (ICD-10-CM ) 06/10 Correction 06/11 Maria C Ashraf MD Body mass index [BMI] 28.0-28.9, adult Rubella non-immune 256317355 (SNOMED CT) 06/11 Active 06/11 Crystal Yang RN Rubella non-immune Body mass index (BMI) 28.0-28.9; adult Z68.28 (ICD-10-CM ) 06/10 Removed 06/11 Maria C Ashraf MD Body mass index [BMI] 28.0-28.9, adult H/O: section 093057645 (SNOMED CT) 06/10 Active 06/11 Maria C Ashraf MD Past history of section Supervision , other normal 869137142 (SNOMED CT) 06/10 Inactive 06/10 Maria C Ashraf MD care NORMAL 1ST Z34.00 (ICD-10-CM ) Resolved Maria C Ashraf MD Encounter for supervision of normal first , unspecified trimester INSUFFICIEN T CARE 511410191 (SNOMED CT) Resolved Maria C Ashraf MD care status NEED PROPHYLACTI C VACCINATION &INOCULATIO N FLU Z23 (ICD-10-CM ) 06/01 Resolved 06/01 Maria C Ashraf MD Encounter for immunization OTHER SPEC CONDS ORIGINATING PERIOD 779.89 (ICD-9-CM) 06/01 Resolved 06/01 Maria C Ashraf MD Other specified conditions originating in the period echogenic foci heart. URINARY TRACT INFECTION, GESTATIONAL N39.0 (ICD-10-CM ) 07/07 Resolved 07/07 Maria C Ashraf MD Urinary tract infection, site not specified Supervision of normal 59379761 (SNOMED CT) 06/10 Inactive 06/10 Maria C Ashraf MD Normal URINARY TRACT INFECTION 30700112 (SNOMED CT) Resolved Nancy Mancuso CNM Urinary tract infectious disease URINARY TRACT INFECTION, GESTATIONAL N39.0 (ICD-10-CM ) 07/07 Removed 07/07 Nancy Mancuso CNM Urinary tract infection, site not specified OTHER SPEC CONDS ORIGINATING PERIOD 779.89 (ICD-9-CM) 06/01 Removed 06/01 Nancy Mancuso CNM Other specified conditions originating in the period echogenic foci heart. NEED PROPHYLACTI C VACCINATION &INOCULATIO N FLU Z23 (ICD-10-CM ) 06/01 Removed 06/01 Nancy Mancuso CNM Encounter for immunization CERV HIGH RISK HUMAN PAPILLOMAVI HUSSEIN DNA TEST POS R87.810 (ICD-10-CM ) Active Nancy Mancuso CNM Cervical high risk human papillomavirus (HPV) DNA test positive PAP SMER CERV W/ATYPICAL SQUAMOUS CELLS UNDET R87.610 (ICD-10-CM ) Inactive Nancy Mancuso CNM Atypical squamous cells of undetermined significance on cytologic smear of cervix (ASC-US) URINARY TRACT INFECTION 07240530 (SNOMED CT) Removed Nancy Mancuso CNM Urinary tract infectious disease INSUFFICIEN T CARE 507220083 (SNOMED CT) Removed Nancy Mancuso CNM care status NORMAL 1ST Z34.00 (ICD-10-CM ) Removed Nancy Mancuso CNM Encounter for supervision of normal first , unspecified trimester Medications Medication Instructions Start Date Stop Date Generic Name ND Provider NITROFURANTOIN MONOHYD MACRO 100 MG CAPS TAKE 1 CAPSULE BY MOUTH each night 06/20 NITROFURANTOIN MONOHYD MACRO [id number] Maria C Ashraf MD MACROBID 100 MG CAPS 1 twice daily NITROFURANTOIN MONOHYD MACRO [id number] Nancy Mancuso CNM MACROBID 100 MG CAPS 1 twice daily 05/16 NITROFURANTOIN MONOHYD MACRO [id number] Nancy Mancuso CNM PLUS IRON 29-1 MG ORAL TABLET 1 daily 07/05 VIT-IRON CARBONYL-FA [id number] Nancy Mancuso CNM Medications Administered No information available. Allergies, Adverse Reactions, Alerts Observed no known allergies at Results Date Name Value Unit Range Flag Description Office Visit: new ob transfe r . Will have records rm 10 PREG TST URN 11/15/2012 beta HCG, urine, semiquantitative Lab Report: CHLAMYDIA/N. JOSE ORRHOEAE DNA, SDA GC DNA PROBE NOT DETECTED NOT DETECT Neisseria gonorrhoeae DNA [Presence] in Anorectal by HIRAM with probe detection Lab Report: OBSTETRIC PANEL, HEPATITIS C ANTIBODY, HIV AB, HIV 1/2, EIA, ... HEP C AB NON-REACTIVE NON-REACT I N Hepatitis C virus Ab [Presence] in Serum BASO % MANU 0.7 % N basophils as percent of blood leukocytes, manual count EOS % MANU 0.7 % N eosinophil s as percent of blood leukocytes, manual count MONOCYTE % 5.2 % N Monocytes/ 100 leukocytes in Blood by Automated count LYMPH% P BLD 23.3 % N lymphocy thanh as percent of blood leukocytes PMN % 70.1 % N Neutrophils/1 00 leukocytes in Blood by Automated count ABS BASOS 54 {Cells}/ uL 0-200 N Basophils [#/volume] in Blood ABS EOS 54 {Cells}/ uL 15-500 N Eosinophils [#/volume] in Blood ABS MONOS 400 {Cells}/ uL 200-950 N Monocytes [#/volume] in Blood ABSLYMPHCT 1794 {Cells}/ uL 850-3900 N Lymphocytes [#/volume] in Blood ABS NEUTROPH 5398 CELLS/UL 10*3/uL 5545-5328 N Neutrophils [#/volume] in Blood Lab Report: GLUCOSE TOLERANC E TEST, GEST, 3 SPEC (75G), CBC (H/H, RBC, I ... RDW 14.1 % 11.0-15.0 N Erythrocyte distribution width [Ratio] by Automated count OL-MCHC 33.5 g/dL 32.0-36.0 N mean corpus cular hemoglobin concentration, rbc MCH 31.4 pg 27.0-33.0 N MCH [Entiti c mass] by Automated count MCV 93.8 fL 80.0-100. 0 N MCV [Entitic volume] by Automated count Office Visit: Initial Ob vis it - rm #1 HGB 11.1 g/dL Hemoglobin [Mass/volume] in Blood Lab Report: Hemoglobin A1c HGBA1C 5.2 % 4.2-5.6 Hemoglobin A1c/Hemoglobin, total in Blood - % Chart Maintenance: Preloaded Ob labs from JAN 2018 URINE CULTUR >100,000 Enterococcus faecalis {cfu}/mL urine culture (w ith units of CFunits/mL) HBSAG Non Reactive Hepatiti s B virus surface Ag [Presence] in Tissue by Immune stain RPR Negative Reagin Ab [Units/volume] in Serum by VDRL RUBELLA IGG 0.916 Rubella v irus IgG Ab [Units/volume] in Serum --1st specimen PLATELETK/UL 236 10*3/uL platelet count RBC M/UL 4.19 10*6/uL red blood co unt HCT 36.1 % Hematocrit [V olume Fraction] of Blood by Automated count WBC CT BLOOD 9.0 10*3/uL leukocyt e count, blood ANTIBODY SCR Negative antibod y screen, serum ABO/RH Positive blood type w ith RH factor ABO BLD GRP A ABO blood group Office Visit: PN f/u - rm #1 0 SPEC GR URIN 1.015 Specific gravity of Urine by Test strip PH URINE 7.0 pH of Urine by Test strip GLUCOSE, URN negative Glucose [Mass/volume] in Urine by Test strip BILIRUBIN UR negative Bilirub in.total [Presence] in Urine by Test strip KETONES URN negative Ketones [Mass/volume] in Urine by Test strip BLOOD UR DIP negative blood i n urine (hemoglobin) by dipstick PROTEIN, URN negative protein , urine, semiquantitative (dipstick) UROBILINOGEN 3.5 Urobilin ogen [Presence] in Urine by Test strip NITRITE URN negative Nitrite [Presence] in Urine by Test strip WBC DIPSTK U negative Leukocy te esterase [Presence] in Urine by Test strip Plan of Care Type Date Detail Pending order Urine Dip Auto 8 1003 Pending order Urine Dip Auto 8 1003 Pending order Urine Dip Auto 8 1003 Pending Order exclud ed from report: Pending order Urine Dip Auto 8 1003 Pending order T1 HGBA1c Pending order T1 G.C. Chlamydi a Pending order T1 Group B Strep Pending order Urine Dip Auto 8 1003 Pending order Urine Culture Pending Order exclud ed from report: Pending order Urine Dip Auto 8 1003 Pending order Urine Culture Pending order Urine Dip Auto 8 1003 Pending order Urine Dip Auto 8 1003 Pending order Group B Strep Pending order GC & Chlamydia Pending order Urine Dip Auto 8 1003 Pending order Genetic Counseli ng Pending order Flu 3 yrs and ol kaleb Pending order IMADM >18YR IM R OUTE 1ST VAC/TOXOID Pending order Urine Dip Auto 8 1003 Pending order CBC no diff Pending order GTT 3 Specimen Pending order Immunization(s) Ordered Pending order ThinPrep Pap w r eflex HR HPV Pending order Pelvic Ultrasoun d Pending order Test 8 1025 Pending order Urine Dip Auto 8 1003 Pending order Cystic Fibrosis Screen Pending order Cystic Fibrosis Screen Pending Order exclud ed from report: Pending order Drug Screen w/o Confirmation Pending order GC & Chlamydia Pending order Hep C Ab Pending order HIV Antibody -co nsent required Pending order Panel ( Obstetric Panel) Pending order Urine Culture Procedures Code Procedure Name Date Entry Date CPT-3074F Most recent systolic blood pressure <130 mm Hg CPT-3079F Most recent diastoli c blood pressure 80-89 mm Hg CPT-88601 Urine Dip Auto 49702 [id number] Medication Reconciliation CPT-88861 Urine Dip Auto 30484 CPT-39914 Urine Dip Auto 13014 CPT-3074F Most recent systolic blood pressure <130 mm Hg CPT-3079F Most recent diastoli c blood pressure 80-89 mm Hg [id number] Medication Reconciliation [facility] 496 T1 HGBA1c [facility] 50563 T1 G.C. Chlamydia [facility] 5617 T1 Group B Strep CPT-60553 Urine Dip Auto 59196 395 [facility] Test # Urine Culture CPT-76388 Urine Dip Auto 44441 CPT-27332 Urine Dip Auto 71644 CPT-77119 Urine Dip Auto 18588 64608 [facility] # GC & Chlamydia 5617 [facility] # Group B Strep 4 CPT-32393 Urine Dip Auto 12092 GC PN Genetic Counseling CPT-23085 Urine Dip Auto 39740 IMMORDER Immunization(s) Ordered 2012 [facility]# 1759 CBC no diff [facility]# 39048 GTT 3 Specimen CPT-30259 Flu 3 yrs and older CPT-72881 IMADM >18YR IM ROUTE 1ST VAC/TOXOID 04/01 PU Pelvic Ultrasound 23105 [facility] # Drug Screen w/o Confirmation 17855 [facility] Test # GC & Chlamydia CPT-77085 Urine Dip Auto 30502 CPT-33550 Test 89324 8472 [facility] [place] [address] [facility] # HIV Antibody -consent required 03/04 [facility]# [id number] Panel (Obstetric Panel) 395 [facility] # Urine Culture CPT-15677 Cystic Fibrosis Screen 03/04 65775 [facility] # ThinPrep Pap w reflex HR HPV Vital Signs Date Name Value Unit Description BMI (Body Mass Index) 29.24 kg/m2 Bod y Mass Index (Ratio) BP Diastolic 81 mm[Hg] blood pressu re, diastolic BP Systolic 124 mm[Hg] blood pressur e, systolic BSA (Body Surface Area) 2.00 b ruthy surface area Heart Rate 87 /min pulse rate Height 67 [in_us] height E&M Height 170.18 cm height in cent imeters E&M Weight Measured 186.0 [lb_av] weight E& M Weight Measured 186.0 [lb_av] weight E& M Weight Measured 84.55 kg weight in kilograms E&M Immunizations Vaccine Administration Date Standard Description CVX Co de Dose flu vax#1 141 Unknown PRIVATE Fluzone Quadrivalent Prefilled Syringe 0.5 ML for 36 mos + PRIVATE Fluzone Quadrivalent Prefilled Syringe 0.5 ML for 36 mos + 150 Unknown Not given: Patient d ecision Advance Directives No information available.
[2024-11-05 03:37] LABS: Neisseria gonorrhoeae, NAA Negative (Negative)
== END 2024-11-03 23:59 | disposition home or self-care (01) ==
LOC: LAB.DROPOF 16:22
PROVIDERS: PCP Obstetrics & Gynecology; Visit Provider Obstetrics & Gynecology
DX: N89.8 Other specified noninflammatory disorders of vagina (principal)
CPT/HCPCS: 87491; 87591